=== PATIENT | male | born 1930 | race Caucasian/White ===

== ENCOUNTER 2016-11-20 05:53 | Emergency (ER) | payer MEDICARE, OTHER ==
[~2016-11-20] VITALS: Ht 177.8 cm; Wt 75.2 kg
[2016-11-20] MEDS ORDERED: ENAL20TA PO (06:32)
[2016-11-20] MEDS ORDERED: AMLO-280 PO (06:32)
[2016-11-20] MEDS ORDERED: METF500T4 PO (06:32)
[2016-11-20] MEDS ORDERED: GEMF600T3 PO (06:33)
[2016-11-20] MEDS ORDERED: FLUT9.9S NAS (06:33)
[2016-11-20] MEDS ORDERED: HYDR25TA6 PO (06:33)
[2016-11-20] MEDS ORDERED: SODIUM CHLORIDE FLUSH 10ML SYR IVF ONE (07:00)
[2016-11-20] MEDS ORDERED: SODIUM CHLORIDE 0.9% 1,000ML IVBOLUS ONE (07:00)
[2016-11-20 07:44] LABS: ASPARTATE AMINO TRANSFERASE 15 U/L (15-37); BLOOD UREA NITROGEN 33 mg/dL (7-18)
[2016-11-20 07:48] LABS: IS PT STATUS REG ER OR PRE ER? YES
[2016-11-20 08:07] VITALS: BP 134/76
== END 2016-11-20 09:25 | disposition home or self-care (01) ==
LOC: ED 06:19
DX: J20.9 Acute bronchitis, unspecified (principal); J01.90 Acute sinusitis, unspecified
CPT/HCPCS: 36415; 71010; 80053; 83605; 84484; 85025; 87040; 96360; 99285; J7030

== ENCOUNTER 2017-10-02 08:58 | Inpatient (IN) | payer MEDICARE ==
[~2017-10-02] VITALS: Ht 172.7 cm; Wt 78.9 kg
[~2017-10-02 08:58] MED LIST: AMLO-302 PO; APIX2.5T PO; ATOR10TA9 PO; DILT240C55 PO; ENAL20TA PO; FLUT9.9S NAS; GEMF600T3 PO; HYDR25TA6 PO; METF500T4 PO
[2017-10-02 09:21] LABS: BASOPHILS # (AUTO) 0.03 x10^3/uL (0-0.1); BASOPHILS % (AUTO) 0 % (0-1); EOSINOPHILS # (AUTO) 0.19 x10^3/uL (0-0.4); EOSINOPHILS % (AUTO) 3 % (1-7); LYMPHOCYTES % (AUTO) 21 % (22-44); MD NO; MEAN CORPUSCULAR HEMOGLOBIN 32.2 pg (27.5-34.5); MEAN CORPUSCULAR HGB CONC 33.4 g/dL (33.2-36.2); MEAN CORPUSCULAR VOLUME 96.4 fL (81-97); MEAN PLATELET VOLUME 8.8 fL (7.4-10.4); MONOCYTES # (AUTO) 0.57 x10^3/uL (0.2-0.8); MONOCYTES % (AUTO) 9 % (2-9); NEUTROPHILS # (AUTO) 4.45 x10^3/uL (1.8-6.8); NEUTROPHILS % (AUTO) 67 % (42-75); PLATELET COUNT 213 x10^3/uL (130-400); RED BLOOD COUNT 4.28 x10^6/uL (4.38-5.82); RED CELL DISTRIBUTION WIDTH 14.5 % (9.4-14.8)
[2017-10-02] MEDS ORDERED: SODIUM CHLORIDE FLUSH 10ML SYR IVF ONE (09:30)
[2017-10-02 09:32] LABS: INTERNATIONAL NORMALIZED RATIO 1.13 (0.93-1.1); PROTHROMBIN TIME 11.7 Seconds (9.6-11.5)
[2017-10-02 09:35] LABS: ALANINE AMINOTRANSFERASE 23 U/L (12-78); ALBUMIN 4.1 g/dL (3.4-5.0); ANION GAP 10 mmol/L (5-15); CALCIUM 9.3 mg/dL (8.5-10.1); CHLORIDE 104 mmol/L (98-107); CREATININE 1.43 mg/dL (0.7-1.3)
[2017-10-02 09:39] LABS: ALKALINE PHOSPHATASE 88 U/L (45-117); BILIRUBIN,TOTAL 0.6 mg/dL (0.2-1.0); TOTAL PROTEIN 7.7 g/dL (6.4-8.2); TROPONIN I < 0.015 ng/mL (0.000-0.045)
[2017-10-02] MEDS ORDERED: AMLO10TA2 PO (10:09)
[2017-10-02] MEDS ORDERED: GABA100C PO (10:10)
[2017-10-02] MEDS ORDERED: OMEP-110 PO (10:10)
[2017-10-02] MEDS ORDERED: SODIUM CHLORIDE FLUSH 10ML SYR IVF PRN (11:00)
[2017-10-02 11:12] LABS: MICROSCOPIC NOT IND
[2017-10-02] MEDS ORDERED: GLUCAGON 1 MG IM PRN (11:30)
[2017-10-02] MEDS ORDERED: DEXTROSE 50%, 50ML SYRINGE IVPush PRN (11:30)
[2017-10-02] MEDS ORDERED: ONDANSETRON 2MG/ML, 2ML IVPush PRN (11:30)
[2017-10-02] MEDS ORDERED: DEXTROSE 4 GM TAB.CHEW PO PRN (11:30)
[2017-10-02] MEDS ORDERED: hydrALAzine 20 MG/ML, 1ML IVPush PRN (11:30)
[2017-10-02 11:34] LABS: CULTURE INDICATED? NO
[2017-10-02] MEDS ORDERED: GADOBUTROL 7.5 MMOL/7.5 ML PFS ONE (11:53)
[2017-10-02 12:41] VITALS: BP_SYST 126; BP_SYST 140; BP_SYST 146; BP_DIAS 62; BP_DIAS 68; BP_DIAS 69
[2017-10-02] MEDS: SODIUM CHLORIDE 0.9% 1,000 ML IV SCH (13:02)
[2017-10-02] MEDS: ACETAMINOPHEN 325 MG TABLET PO PRN ×2 (15:20→22:16)
[2017-10-02] MEDS: INSULIN LISPRO 100 UNITS/ML, PEN SQ-INSULIN SCH ×2 (16:00→22:16)
[2017-10-02] MEDS ORDERED: INSULIN LISPRO 100 UNITS/ML, PEN SQ-INSULIN SCH (16:00)
[2017-10-02] MEDS: DEXAMETHASONE 4 MG/ML, 1ML IVPush SCH ×2 (16:32→22:16)
[2017-10-02 19:41] VITALS: BP 138/69
[2017-10-02] MEDS: ATORVASTATIN 10 MG TABLET PO SCH (22:15)
[2017-10-02] MEDS: GABAPENTIN 100 MG CAPSULE PO SCH (22:15)
[2017-10-02] MEDS: SODIUM CHLORIDE FLUSH 10ML SYR IVF SCH (22:15)
[2017-10-03] VITALS (9 sets, daily range): BP systolic 116–159; BP diastolic 61–84
[2017-10-03] MEDS: SODIUM CHLORIDE 0.9% 1,000 ML IV SCH ×2 (00:20→15:34)
[2017-10-03] MEDS: DEXAMETHASONE 4 MG/ML, 1ML IVPush SCH ×4 (04:14→21:33)
[2017-10-03 06:23] LABS: BASOPHILS # (AUTO) 0.01 x10^3/uL (0-0.1); BASOPHILS % (AUTO) 0 % (0-1); EOSINOPHILS % (AUTO) 0 % (1-7); MD NO
[2017-10-03 06:33] LABS: CHLORIDE 109 mmol/L (98-107)
[2017-10-03 06:36] LABS: LYMPHOCYTES # (AUTO) 0.66 x10^3/uL (1-3.4); LYMPHOCYTES % (AUTO) 10 % (22-44); MEAN CORPUSCULAR HEMOGLOBIN 33.1 pg (27.5-34.5); MEAN CORPUSCULAR HGB CONC 33.9 g/dL (33.2-36.2); MEAN CORPUSCULAR VOLUME 97.6 fL (81-97); MEAN PLATELET VOLUME 9.9 fL (7.4-10.4); MONOCYTES % (AUTO) 2 % (2-9); NEUTROPHILS # (AUTO) 6.03 x10^3/uL (1.8-6.8); NEUTROPHILS % (AUTO) 89 % (42-75); PLATELET COUNT 193 x10^3/uL (130-400); RED BLOOD COUNT 3.94 x10^6/uL (4.38-5.82); RED CELL DISTRIBUTION WIDTH 14.1 % (9.4-14.8)
[2017-10-03 06:42] LABS: ALANINE AMINOTRANSFERASE 19 U/L (12-78); ALBUMIN 3.6 g/dL (3.4-5.0); ALKALINE PHOSPHATASE 80 U/L (45-117); ANION GAP 8 mmol/L (5-15); BILIRUBIN,TOTAL 0.4 mg/dL (0.2-1.0); CREATININE 1.29 mg/dL (0.7-1.3)
[2017-10-03] MEDS: INSULIN LISPRO 100 UNITS/ML, PEN SQ-INSULIN SCH ×4 (08:07→21:34)
[2017-10-03] MEDS: OMEPRAZOLE 20 MG CAPSULE.DR PO SCH (08:09)
[2017-10-03] MEDS: ENALAPRIL 20MG TABLET PO SCH (08:09)
[2017-10-03] MEDS: APIXABAN 2.5 MG TABLET PO SCH ×2 (08:09→21:34)
[2017-10-03] MEDS: GABAPENTIN 100 MG CAPSULE PO SCH ×2 (08:09→21:33)
[2017-10-03] MEDS: GEMFIBROZIL 600 MG TABLET PO SCH (08:09)
[2017-10-03] MEDS: DILTIAZEM 240 MG CAP.ER.24H PO SCH (08:10)
[2017-10-03] MEDS: SODIUM CHLORIDE FLUSH 10ML SYR IVF SCH ×2 (08:10→21:34)
[2017-10-03] MEDS: FLUTICASONE NASAL SPRAY 16GM NAS SCH (10:24)
[2017-10-03] MEDS: ACETAMINOPHEN 325 MG TABLET PO PRN ×2 (13:55→20:53)
[2017-10-03] MEDS: ATORVASTATIN 10 MG TABLET PO SCH (21:34)
[2017-10-04 01:15] VITALS: BP 120/65
[2017-10-04] MEDS: DEXAMETHASONE 4 MG/ML, 1ML IVPush SCH (03:36)
[2017-10-04] MEDS: SODIUM CHLORIDE 0.9% 1,000 ML IV SCH (03:36)
[2017-10-04 05:48] LABS: ANION GAP 7 mmol/L (5-15); CALCIUM 8.5 mg/dL (8.5-10.1); CHLORIDE 109 mmol/L (98-107)
[2017-10-04 05:52] LABS: ALANINE AMINOTRANSFERASE 16 U/L (12-78); ALKALINE PHOSPHATASE 64 U/L (45-117); BASOPHILS % (AUTO) 0 % (0-1); BILIRUBIN,TOTAL 0.4 mg/dL (0.2-1.0); CREATININE 1.21 mg/dL (0.7-1.3); EOSINOPHILS % (AUTO) 0 % (1-7); LYMPHOCYTES % (AUTO) 7 % (22-44); MD NO; MEAN CORPUSCULAR HEMOGLOBIN 33.9 pg (27.5-34.5); MEAN CORPUSCULAR VOLUME 96.7 fL (81-97); MEAN PLATELET VOLUME 9.4 fL (7.4-10.4); MONOCYTES # (AUTO) 0.34 x10^3/uL (0.2-0.8); MONOCYTES % (AUTO) 3 % (2-9); NEUTROPHILS # (AUTO) 10.94 x10^3/uL (1.8-6.8); NEUTROPHILS % (AUTO) 91 % (42-75); PLATELET COUNT 180 x10^3/uL (130-400); RED BLOOD COUNT 3.41 x10^6/uL (4.38-5.82); RED CELL DISTRIBUTION WIDTH 13.8 % (9.4-14.8); TOTAL PROTEIN 5.9 g/dL (6.4-8.2)
[2017-10-04 06:59] VITALS: BP 119/58
[2017-10-04 07:00] VITALS: BP 132/63
[2017-10-04 07:01] VITALS: BP 154/65
[2017-10-04] MEDS: ENALAPRIL 20MG TABLET PO SCH (08:09)
[2017-10-04] MEDS: GEMFIBROZIL 600 MG TABLET PO SCH (08:09)
[2017-10-04] MEDS: FLUTICASONE NASAL SPRAY 16GM NAS SCH (08:09)
[2017-10-04] MEDS: OMEPRAZOLE 20 MG CAPSULE.DR PO SCH (08:09)
[2017-10-04] MEDS: INSULIN LISPRO 100 UNITS/ML, PEN SQ-INSULIN SCH ×2 (08:10→11:20)
[2017-10-04] MEDS: SODIUM CHLORIDE FLUSH 10ML SYR IVF SCH (08:10)
[2017-10-04] MEDS: APIXABAN 2.5 MG TABLET PO SCH (08:10)
[2017-10-04] MEDS: DILTIAZEM 240 MG CAP.ER.24H PO SCH (08:10)
[2017-10-04] MEDS: GABAPENTIN 100 MG CAPSULE PO SCH (08:10)
[2017-10-04] MEDS ORDERED: DEXAMETHASONE 4 MG/ML, 1ML IVPush SCH (10:00)
[2017-10-04] MEDS ORDERED: DEXA4TAB66 PO (11:50)
[2017-10-04 12:37] VITALS: BP 147/64
== END 2017-10-04 13:11 | disposition home or self-care (01) | DRG 55 ==
LOC: ED 09:27 → EDIP 10:38 → 4EST 12:04
PROVIDERS: ADMIT Hospitalist; ATTEND Hospitalist
DX: D32.9 Benign neoplasm of meninges, unspecified (principal); D68.9 Coagulation defect, unspecified; E11.22 Type 2 diabetes mellitus with diabetic chronic kidney disease; E11.40 Type 2 diabetes mellitus with diabetic neuropathy, unspecified; N18.3 Chronic kidney disease, stage 3 (moderate); I48.91 Unspecified atrial fibrillation; G45.3 Amaurosis fugax; D35.2 Benign neoplasm of pituitary gland; I95.1 Orthostatic hypotension; D64.9 Anemia, unspecified; E78.5 Hyperlipidemia, unspecified; G51.0 Bell's palsy; I12.9 Hypertensive chronic kidney disease with stage 1 through stage 4 chronic kidney disease, or unspecified chronic kidney disease; J32.9 Chronic sinusitis, unspecified; K21.9 Gastro-esophageal reflux disease without esophagitis; Z79.01 Long term (current) use of anticoagulants
CPT/HCPCS: 36415; 70450; 70553; 71045; 80047; 80053; 81003; 82962; 83001; 83003; 83519; 83735; 83880; 84146; 84305; 84443; 84484; 85025; 85610; 85730; 93005; 93880; 99285; A9585; J1100; J1815; J7030

== ENCOUNTER → 2017-10-13 | Outpatient (CLI) | payer MEDICARE ==
[~2017-10-13] MED LIST changes: +AMLO10TA2 PO; +DEXA4TAB66 PO; +GABA100C PO; +OMEP-110 PO
== END ==
LOC: CVU 06:44
PROVIDERS: ATTEND Internal Medicine Cardiovascular Disease
DX: M79.661 Pain in right lower leg (principal); M79.662 Pain in left lower leg; I10 Essential (primary) hypertension; I48.91 Unspecified atrial fibrillation
CPT/HCPCS: 93922

== ENCOUNTER 2017-12-22 06:15 | Emergency (ER) | payer MEDICARE ==
[~2017-12-22] VITALS: Ht 172.7 cm; Wt 79.5 kg
[~2017-12-22 06:15] MED LIST changes: -METF500T4 PO; +METF500T5 PO
[2017-12-22] MEDS ORDERED: DILT-8 PO (06:40)
[2017-12-22] MEDS ORDERED: APIX2.5T PO (06:40)
[2017-12-22 06:41] VITALS: BP 147/83
[2017-12-22 07:08] LABS: BASOPHILS # (AUTO) 0.01 x10^3/uL (0-0.1); BASOPHILS % (AUTO) 0 % (0-1); EOSINOPHILS % (AUTO) 0 % (1-7); LYMPHOCYTES # (AUTO) 0.93 x10^3/uL (1-3.4); LYMPHOCYTES % (AUTO) 10 % (22-44); MD NO; MEAN CORPUSCULAR HEMOGLOBIN 31.5 pg (27.5-34.5); MEAN CORPUSCULAR HGB CONC 33.2 g/dL (33.2-36.2); MEAN CORPUSCULAR VOLUME 94.8 fL (81-97); MEAN PLATELET VOLUME 9.9 fL (7.4-10.4); MONOCYTES # (AUTO) 0.48 x10^3/uL (0.2-0.8); MONOCYTES % (AUTO) 5 % (2-9); NEUTROPHILS % (AUTO) 85 % (42-75); PLATELET COUNT 186 x10^3/uL (130-400); RED BLOOD COUNT 3.78 x10^6/uL (4.38-5.82); RED CELL DISTRIBUTION WIDTH 14.6 % (9.4-14.8)
[2017-12-22 07:19] LABS: ALBUMIN 3.4 g/dL (3.4-5.0); ANION GAP 11 mmol/L (5-15); CALCIUM 8.2 mg/dL (8.5-10.1); CHLORIDE 108 mmol/L (98-107)
[2017-12-22 07:24] LABS: CREATININE 1.17 mg/dL (0.7-1.3); TROPONIN I < 0.015 ng/mL (0.000-0.045)
== END 2017-12-22 08:13 | disposition home or self-care (01) ==
LOC: ED 08:10
DX: H81.399 Other peripheral vertigo, unspecified ear (principal); I10 Essential (primary) hypertension; E11.9 Type 2 diabetes mellitus without complications; I48.91 Unspecified atrial fibrillation; Z86.73 Personal history of transient ischemic attack (TIA), and cerebral infarction without residual deficits
CPT/HCPCS: 36415; 70450; 71045; 80048; 82040; 83880; 84484; 85025; 93005; 99285

== ENCOUNTER 2018-03-07 06:03 | Inpatient (IN) | payer MEDICARE ==
[~2018-03-07] VITALS: Ht 172.7 cm; Wt 76.1 kg
[~2018-03-07 06:03] MED LIST changes: -AMLO10TA2 PO; +AMLO10TA6 PO; +ATOR40TA78 PO; +CARV12.543 PO; +DILT-8 PO; +DILT180C53 PO; +FURO20TA3 PO; -GEMF600T3 PO; +GEMF600T4 PO; +METF500T17 PO; -METF500T5 PO; +POTA10CA PO
[2018-03-07] MEDS ORDERED: DILTIAZEM 125 MG in DEXTROSE 5% 100 ML IV SCH (06:12)
[2018-03-07] MEDS ORDERED: FUROSEMIDE 40 MG/4 ML ONE (06:25)
[2018-03-07] MEDS ORDERED: DILTIAZEM 5 MG/ML, 5ML ONE (06:26)
[2018-03-07] MEDS ORDERED: DILTIAZEM 5 MG/ML, 5ML IV ONE (06:30)
[2018-03-07] MEDS ORDERED: NITROGLYCERIN SINGLE TAB 0.4 MG SL PRN (06:30)
[2018-03-07] MEDS ORDERED: FUROSEMIDE 40 MG/4 ML IVP ONE (06:30)
[2018-03-07 06:33] LABS: BASOPHILS # (AUTO) 0.03 x10^3/uL (0-0.1); BASOPHILS % (AUTO) 0 % (0-1); EOSINOPHILS # (AUTO) 0.18 x10^3/uL (0-0.4); EOSINOPHILS % (AUTO) 2 % (1-7); LYMPHOCYTES # (AUTO) 0.97 x10^3/uL (1-3.4); LYMPHOCYTES % (AUTO) 11 % (22-44); MD NO; MEAN CORPUSCULAR HEMOGLOBIN 31.7 pg (27.5-34.5); MEAN CORPUSCULAR HGB CONC 33.5 g/dL (33.2-36.2); MEAN CORPUSCULAR VOLUME 94.6 fL (81-97); MEAN PLATELET VOLUME 9.3 fL (7.4-10.4); MONOCYTES % (AUTO) 7 % (2-9); NEUTROPHILS # (AUTO) 7.02 x10^3/uL (1.8-6.8); NEUTROPHILS % (AUTO) 80 % (42-75); PLATELET COUNT 170 x10^3/uL (130-400); RED BLOOD COUNT 4.01 x10^6/uL (4.38-5.82); RED CELL DISTRIBUTION WIDTH 17.5 % (9.4-14.8)
[2018-03-07 06:46] LABS: ALBUMIN 3.7 g/dL (3.4-5.0); ANION GAP 8 mmol/L (5-15); CALCIUM 8.6 mg/dL (8.5-10.1); CHLORIDE 109 mmol/L (98-107)
[2018-03-07 06:52] LABS: ALANINE AMINOTRANSFERASE 21 U/L (12-78); ALKALINE PHOSPHATASE 115 U/L (45-117); BILIRUBIN,TOTAL 0.8 mg/dL (0.2-1.0); CREATININE 1.46 mg/dL (0.7-1.3); TROPONIN I < 0.015 ng/mL (0.000-0.045)
[2018-03-07] MEDS ORDERED: ASPI-496 PO (07:39)
[2018-03-07] MEDS ORDERED: DOCUSATE 100 MG CAPSULE PO PRN (08:30)
[2018-03-07] MEDS ORDERED: ACETAMINOPHEN 325 MG TABLET PO PRN (08:30)
[2018-03-07] MEDS ORDERED: TRAZODONE 50MG TABLET PO PRN (08:30)
[2018-03-07 08:45] VITALS: BP 123/70
[2018-03-07] MEDS: GABAPENTIN 100 MG CAPSULE PO SCH ×2 (10:13→21:01)
[2018-03-07] MEDS: APIXABAN 2.5 MG TABLET PO SCH ×2 (10:13→21:01)
[2018-03-07] MEDS: DILTIAZEM CD 180 MG CAP.ER.24H PO SCH ×2 (10:13→21:00)
[2018-03-07] MEDS: ASPIRIN 81 MG TABLET EC PO SCH (10:13)
[2018-03-07 12:13] LABS: TROPONIN I < 0.015 ng/mL (0.000-0.045)
[2018-03-07 13:15] VITALS: BP 125/76
[2018-03-07] MEDS: INSULIN LISPRO 100 UNITS/ML, PEN SQ-INSULIN SCH ×3 (13:55→21:00)
[2018-03-07] MEDS: FUROSEMIDE 40 MG/4 ML IV SCH (17:13)
[2018-03-07] MEDS: CARVEDILOL 12.5 MG TABLET PO SCH (17:13)
[2018-03-07] MEDS ORDERED: POTA10CA PO (18:33)
[2018-03-07] MEDS ORDERED: FURO20TA3 PO (18:33)
[2018-03-07 18:36] LABS: TROPONIN I 0.017 ng/mL (0.000-0.045)
[2018-03-07 19:25] VITALS: BP 127/74
[2018-03-07] MEDS: ATORVASTATIN 40 MG TABLET PO SCH (21:01)
[2018-03-08] MEDS: CARVEDILOL 12.5 MG TABLET PO SCH ×2 (05:04→16:48)
[2018-03-08 05:07] VITALS: BP 128/65
[2018-03-08 05:36] LABS: BASOPHILS # (AUTO) 0.03 x10^3/uL (0-0.1); BASOPHILS % (AUTO) 0 % (0-1); EOSINOPHILS % (AUTO) 3 % (1-7); LYMPHOCYTES # (AUTO) 1.38 x10^3/uL (1-3.4); LYMPHOCYTES % (AUTO) 19 % (22-44); MD NO; MEAN CORPUSCULAR HEMOGLOBIN 31.9 pg (27.5-34.5); MEAN CORPUSCULAR HGB CONC 33.8 g/dL (33.2-36.2); MEAN CORPUSCULAR VOLUME 94.3 fL (81-97); MEAN PLATELET VOLUME 9.7 fL (7.4-10.4); MONOCYTES # (AUTO) 0.64 x10^3/uL (0.2-0.8); MONOCYTES % (AUTO) 9 % (2-9); NEUTROPHILS # (AUTO) 4.86 x10^3/uL (1.8-6.8); NEUTROPHILS % (AUTO) 68 % (42-75); PLATELET COUNT 164 x10^3/uL (130-400); RED BLOOD COUNT 3.86 x10^6/uL (4.38-5.82); RED CELL DISTRIBUTION WIDTH 17.4 % (9.4-14.8)
[2018-03-08 05:48] LABS: ANION GAP 8 mmol/L (5-15); CALCIUM 8.6 mg/dL (8.5-10.1); CHLORIDE 108 mmol/L (98-107)
[2018-03-08 06:01] LABS: CREATININE 1.37 mg/dL (0.7-1.3)
[2018-03-08] MEDS ORDERED: DILTIAZEM 125 MG in DEXTROSE 5% 100 ML IV SCH (06:12)
[2018-03-08 06:48] VITALS: BP 123/72
[2018-03-08] MEDS: INSULIN LISPRO 100 UNITS/ML, PEN SQ-INSULIN SCH ×4 (08:25→21:18)
[2018-03-08] MEDS: GABAPENTIN 100 MG CAPSULE PO SCH ×2 (08:27→21:17)
[2018-03-08] MEDS: FUROSEMIDE 40 MG/4 ML IV SCH (08:27)
[2018-03-08] MEDS: APIXABAN 2.5 MG TABLET PO SCH ×2 (08:27→21:17)
[2018-03-08] MEDS: DILTIAZEM CD 180 MG CAP.ER.24H PO SCH ×2 (08:27→21:17)
[2018-03-08] MEDS: ASPIRIN 81 MG TABLET EC PO SCH (08:27)
[2018-03-08] MEDS: POTASSIUM CHLORIDE 20 MEQ TAB.ER.PRT PO SCH ×2 (08:27→16:48)
[2018-03-08 12:27] VITALS: BP 120/79
[2018-03-08] MEDS ORDERED: FUROSEMIDE 40 MG TABLET PO SCH (17:00)
[2018-03-08] MEDS ORDERED: LINA5TAB PO (17:06)
[2018-03-08 20:52] VITALS: BP 134/89
[2018-03-08] MEDS: ATORVASTATIN 40 MG TABLET PO SCH (21:17)
[2018-03-09 01:56] VITALS: BP 107/58
[2018-03-09 05:19] VITALS: BP 127/68
[2018-03-09] MEDS: CARVEDILOL 12.5 MG TABLET PO SCH (05:21)
[2018-03-09 06:13] LABS: ALBUMIN 3.2 g/dL (3.4-5.0); ANION GAP 10 mmol/L (5-15); CALCIUM 8.6 mg/dL (8.5-10.1); CHLORIDE 107 mmol/L (98-107); CREATININE 1.27 mg/dL (0.7-1.3)
[2018-03-09 07:31] VITALS: BP 119/65
[2018-03-09] MEDS: POTASSIUM CHLORIDE 20 MEQ TAB.ER.PRT PO SCH (08:28)
[2018-03-09] MEDS: DILTIAZEM CD 180 MG CAP.ER.24H PO SCH (08:28)
[2018-03-09] MEDS: GABAPENTIN 100 MG CAPSULE PO SCH (08:28)
[2018-03-09] MEDS: APIXABAN 2.5 MG TABLET PO SCH (08:28)
[2018-03-09] MEDS: ASPIRIN 81 MG TABLET EC PO SCH (08:28)
[2018-03-09] MEDS: INSULIN LISPRO 100 UNITS/ML, PEN SQ-INSULIN SCH (08:30)
[2018-03-09] MEDS ORDERED: FURO40TA6 PO (08:58)
[2018-03-09] MEDS ORDERED: POTA20TA6 PO (08:58)
[2018-03-09] MEDS ORDERED: FUROSEMIDE 40 MG TABLET PO SCH (09:00)
== END 2018-03-09 11:40 | disposition home or self-care (01) | DRG 291 ==
LOC: ED 06:58 → 5SO 07:29 → DCLOUNGE 03-09 11:12
PROVIDERS: ADMIT Internal Medicine; ATTEND Internal Medicine
DX: I13.0 Hypertensive heart and chronic kidney disease with heart failure and stage 1 through stage 4 chronic kidney disease, or unspecified chronic kidney disease (principal); J96.01 Acute respiratory failure with hypoxia; I50.33 Acute on chronic diastolic (congestive) heart failure; J81.1 Chronic pulmonary edema; N17.9 Acute kidney failure, unspecified; I50.9 Heart failure, unspecified; I48.91 Unspecified atrial fibrillation; E11.9 Type 2 diabetes mellitus without complications; Z88.0 Allergy status to penicillin; D32.9 Benign neoplasm of meninges, unspecified; E11.22 Type 2 diabetes mellitus with diabetic chronic kidney disease; E11.42 Type 2 diabetes mellitus with diabetic polyneuropathy; E78.5 Hyperlipidemia, unspecified; E87.6 Hypokalemia; I48.2 Chronic atrial fibrillation; J45.909 Unspecified asthma, uncomplicated; N18.3 Chronic kidney disease, stage 3 (moderate); Z86.73 Personal history of transient ischemic attack (TIA), and cerebral infarction without residual deficits; Z87.891 Personal history of nicotine dependence; G51.0 Bell's palsy; Z79.82 Long term (current) use of aspirin; Z79.899 Other long term (current) drug therapy
CPT/HCPCS: 36415; 71045; 80048; 80053; 82040; 82962; 83735; 83880; 84443; 84484; 85025; 93005; 96374; 96375; 99291; G0378; J1940; J1815

== ENCOUNTER 2018-04-06 20:04 | Inpatient (IN) | payer MEDICARE ==
[~2018-04-06] VITALS: Ht 172.7 cm; Wt 77.5 kg
[~2018-04-06 20:04] MED LIST changes: +ASPI-496 PO; +FURO40TA6 PO; +LINA5TAB PO; +POTA20TA6 PO
[2018-04-06] MEDS ORDERED: SODIUM CHLORIDE FLUSH 10ML SYR IVF ONE (20:30)
[2018-04-06 21:07] LABS: BASOPHILS # (AUTO) 0.06 x10^3/uL (0-0.1); BASOPHILS % (AUTO) 1 % (0-1); EOSINOPHILS # (AUTO) 0.27 x10^3/uL (0-0.4); EOSINOPHILS % (AUTO) 2 % (1-7); LYMPHOCYTES % (AUTO) 16 % (22-44); MD NO; MEAN CORPUSCULAR HEMOGLOBIN 32.3 pg (27.5-34.5); MEAN CORPUSCULAR VOLUME 95.1 fL (81-97); MEAN PLATELET VOLUME 10.4 fL (7.4-10.4); MONOCYTES # (AUTO) 0.74 x10^3/uL (0.2-0.8); MONOCYTES % (AUTO) 6 % (2-9); NEUTROPHILS # (AUTO) 8.61 x10^3/uL (1.8-6.8); NEUTROPHILS % (AUTO) 74 % (42-75); PLATELET COUNT 195 x10^3/uL (130-400); RED BLOOD COUNT 4.32 x10^6/uL (4.38-5.82); RED CELL DISTRIBUTION WIDTH 16.9 % (9.4-14.8)
[2018-04-06 21:14] LABS: INTERNATIONAL NORMALIZED RATIO 1.97 (0.93-1.1); PROTHROMBIN TIME 20.2 Seconds (9.6-11.5)
[2018-04-06 21:17] LABS: ALANINE AMINOTRANSFERASE 26 U/L (12-78); ALBUMIN 3.7 g/dL (3.4-5.0); ANION GAP 9 mmol/L (5-15); CALCIUM 8.4 mg/dL (8.5-10.1); CHLORIDE 109 mmol/L (98-107); CREATININE 1.31 mg/dL (0.7-1.3)
[2018-04-06 21:21] LABS: ALKALINE PHOSPHATASE 114 U/L (45-117); BILIRUBIN,TOTAL 0.7 mg/dL (0.2-1.0); TOTAL PROTEIN 7.2 g/dL (6.4-8.2); TROPONIN I < 0.015 ng/mL (0.000-0.045)
[2018-04-06] MEDS ORDERED: FUROSEMIDE 40 MG/4 ML ONE (22:30)
[2018-04-06] MEDS ORDERED: FUROSEMIDE 40 MG/4 ML IV ONE (22:30)
[2018-04-06 22:52] VITALS: BP 154/87
[2018-04-07] MEDS ORDERED: TEMAZEPAM 15 MG CAPSULE PO PRN (00:30)
[2018-04-07] MEDS ORDERED: ONDANSETRON ODT 4 MG PO PRN (00:30)
[2018-04-07] MEDS ORDERED: DOCUSATE 100 MG CAPSULE PO PRN (00:30)
[2018-04-07] MEDS ORDERED: hydrALAzine 20 MG/ML, 1ML IVPush PRN (00:30)
[2018-04-07] MEDS ORDERED: ACETAMINOPHEN 325 MG TABLET PO PRN (00:30)
[2018-04-07 05:25] VITALS: BP 104/63
[2018-04-07 06:56] VITALS: BP 114/69
[2018-04-07] MEDS: FUROSEMIDE 40 MG/4 ML IV SCH ×2 (08:00→17:20)
[2018-04-07] MEDS ORDERED: WARF2.5T73 PO (08:00)
[2018-04-07] MEDS ORDERED: DILT180C72 PO (08:00)
[2018-04-07] MEDS: FLUTICASONE NASAL SPRAY 16GM NAS SCH (09:30)
[2018-04-07] MEDS: GABAPENTIN 100 MG CAPSULE PO SCH ×2 (10:27→20:55)
[2018-04-07] MEDS: ASPIRIN 81 MG TABLET CHEW PO SCH (10:27)
[2018-04-07] MEDS: METOPROLOL TARTRATE 25 MG TABLET PO SCH ×2 (10:28→17:21)
[2018-04-07 11:12] LABS: BASOPHILS # (AUTO) 0.05 x10^3/uL (0-0.1); BASOPHILS % (AUTO) 1 % (0-1); EOSINOPHILS # (AUTO) 0.17 x10^3/uL (0-0.4); EOSINOPHILS % (AUTO) 2 % (1-7); LYMPHOCYTES # (AUTO) 1.08 x10^3/uL (1-3.4); LYMPHOCYTES % (AUTO) 13 % (22-44); MD NO; MEAN CORPUSCULAR HEMOGLOBIN 31.5 pg (27.5-34.5); MEAN CORPUSCULAR HGB CONC 33.5 g/dL (33.2-36.2); MEAN CORPUSCULAR VOLUME 93.9 fL (81-97); MEAN PLATELET VOLUME 10.3 fL (7.4-10.4); MONOCYTES % (AUTO) 7 % (2-9); NEUTROPHILS # (AUTO) 6.51 x10^3/uL (1.8-6.8); NEUTROPHILS % (AUTO) 78 % (42-75); PLATELET COUNT 153 x10^3/uL (130-400); RED BLOOD COUNT 4.02 x10^6/uL (4.38-5.82); RED CELL DISTRIBUTION WIDTH 16.9 % (9.4-14.8)
[2018-04-07 11:17] LABS: ALANINE AMINOTRANSFERASE 24 U/L (12-78); ALBUMIN 3.6 g/dL (3.4-5.0); ANION GAP 8 mmol/L (5-15); CALCIUM 8.9 mg/dL (8.5-10.1); CHLORIDE 107 mmol/L (98-107)
[2018-04-07 11:20] LABS: ALKALINE PHOSPHATASE 101 U/L (45-117); BILIRUBIN,TOTAL 0.9 mg/dL (0.2-1.0); TOTAL PROTEIN 6.7 g/dL (6.4-8.2)
[2018-04-07 13:05] VITALS: BP 121/70
[2018-04-07 15:27] LABS: INTERNATIONAL NORMALIZED RATIO 1.99 (0.93-1.1); PROTHROMBIN TIME 20.4 Seconds (9.6-11.5)
[2018-04-07] MEDS ORDERED: POTASSIUM CHLORIDE 40 MEQ in SODIUM CHLORIDE 0.9% 500 ML IV ONE (16:00)
[2018-04-07] MEDS ORDERED: WARFARIN 3 MG TABLET PO-COUM ONE (18:00)
[2018-04-07 18:46] VITALS: BP 126/72
[2018-04-07] MEDS ORDERED: ATORVASTATIN 40 MG TABLET PO SCH (21:00)
[2018-04-08 03:07] VITALS: BP 120/68
[2018-04-08 05:17] LABS: INTERNATIONAL NORMALIZED RATIO 1.98 (0.93-1.1); PROTHROMBIN TIME 20.3 Seconds (9.6-11.5)
[2018-04-08 05:22] LABS: ANION GAP 7 mmol/L (5-15); CALCIUM 9.2 mg/dL (8.5-10.1); CHLORIDE 107 mmol/L (98-107)
[2018-04-08 05:23] LABS: CREATININE 1.41 mg/dL (0.7-1.3)
[2018-04-08 05:42] VITALS: BP 132/72
[2018-04-08] MEDS: METOPROLOL TARTRATE 25 MG TABLET PO SCH (05:44)
[2018-04-08 07:46] VITALS: BP 131/77
[2018-04-08] MEDS: FLUTICASONE NASAL SPRAY 16GM NAS SCH (08:21)
[2018-04-08] MEDS: ASPIRIN 81 MG TABLET CHEW PO SCH (08:21)
[2018-04-08] MEDS: GABAPENTIN 100 MG CAPSULE PO SCH (08:21)
[2018-04-08] MEDS: FUROSEMIDE 40 MG/4 ML IV SCH (08:21)
[2018-04-08] MEDS ORDERED: METOPROLOL 1 MG/ML, 5ML ONE (09:44)
[2018-04-08 09:45] VITALS: BP 129/78
[2018-04-08] MEDS ORDERED: METOPROLOL 1 MG/ML, 5ML IVPush ONE (10:00)
[2018-04-08] MEDS ORDERED: FLUTICASONE NASAL SPRAY 16GM NAS SCH (11:00)
[2018-04-08] MEDS ORDERED: DILTIAZEM CD 180 MG CAP.ER.24H PO SCH (11:00)
[2018-04-08] MEDS ORDERED: METO25TA35 PO (11:05)
[2018-04-08] MEDS ORDERED: FURO40TA6 PO (11:05)
[2018-04-08] MEDS ORDERED: METOPROLOL TARTRATE 25 MG TABLET PO SCH (18:00)
[2018-04-08] MEDS ORDERED: WARFARIN 3 MG TABLET PO-COUM ONE (18:00)
[2018-04-09] MEDS ORDERED: FUROSEMIDE 20 MG/2 ML IV SCH (09:00)
== END 2018-04-08 12:34 | disposition home health service (06) | DRG 291 ==
LOC: ED 21:22 → EDIP 22:18 → 5SO 22:50 → DCLOUNGE 04-08 12:20
PROVIDERS: ADMIT Internal Medicine; ATTEND Internal Medicine
DX: I13.0 Hypertensive heart and chronic kidney disease with heart failure and stage 1 through stage 4 chronic kidney disease, or unspecified chronic kidney disease (principal); I50.23 Acute on chronic systolic (congestive) heart failure; D68.69 Other thrombophilia; E11.22 Type 2 diabetes mellitus with diabetic chronic kidney disease; E11.40 Type 2 diabetes mellitus with diabetic neuropathy, unspecified; E11.65 Type 2 diabetes mellitus with hyperglycemia; I48.2 Chronic atrial fibrillation; N18.3 Chronic kidney disease, stage 3 (moderate); R09.02 Hypoxemia; Z82.5 Family history of asthma and other chronic lower respiratory diseases; Z86.011 Personal history of benign neoplasm of the brain; Z86.73 Personal history of transient ischemic attack (TIA), and cerebral infarction without residual deficits; Z87.891 Personal history of nicotine dependence; Z91.14 Patient's other noncompliance with medication regimen
CPT/HCPCS: 36415; 71045; 80048; 80053; 82962; 83735; 83880; 84484; 85025; 85610; 85730; 93005; 96374; G0378; J1940; J3480; J7040

== ENCOUNTER 2018-05-29 10:23 | Emergency (ER) | payer MEDICARE ==
[~2018-05-29] VITALS: Ht 172.7 cm; Wt 79.0 kg
[~2018-05-29 10:23] MED LIST changes: +DILT180C72 PO; +METO25TA35 PO; +WARF2.5T32 PO
[2018-05-29] MEDS ORDERED: GLIM1TAB2 PO (10:50)
--- NOTE | 2018-05-29 10:56 | NUR ---
TASK RN - PT PRESENTS TO ED WITH FAMILY FOR CHEST PRESSURE AND RAPID HEART RATE. PT SEEN BY ROJELIO THIS AM BUT REFUSED EMS TRANSPORT TO ED. PT STATES SYMPTOMS PRESENT FOR "A FEW DAYS." C/O CHEST TIGHTNESS, 3/10, ACROSS CHEST, WITH ASSOCIATED SOB DURING ACTIVITY. PT TO ROOM, CP MONITORS IN [place], CALL LIGHT IN REACH. FAMILY AT BEDSIDE. REPORT TO GIOVANNA LEA RN.
[2018-05-29] MEDS ORDERED: METOPROLOL TARTRATE 50 MG TABLET PO ONE (11:00)
[2018-05-29] MEDS ORDERED: METOPROLOL TARTRATE 25 MG TABLET ONE (11:05)
--- NOTE | 2018-05-29 11:10 | NUR ---
PT AMBULATORY TO BATHROOM WIH STEADY GAIT.
[2018-05-29 11:14] LABS: BASOPHILS # (AUTO) 0.02 x10^3/uL (0-0.1); BASOPHILS % (AUTO) 0 % (0-1); EOSINOPHILS # (AUTO) 0.18 x10^3/uL (0-0.4); EOSINOPHILS % (AUTO) 2 % (1-7); LYMPHOCYTES % (AUTO) 15 % (22-44); MD NO; MEAN CORPUSCULAR HGB CONC 33.3 g/dL (33.2-36.2); MEAN CORPUSCULAR VOLUME 96.2 fL (81-97); MONOCYTES % (AUTO) 8 % (2-9); NEUTROPHILS # (AUTO) 5.46 x10^3/uL (1.8-6.8); NEUTROPHILS % (AUTO) 74 % (42-75); PLATELET COUNT 168 x10^3/uL (130-400); RED BLOOD COUNT 4.14 x10^6/uL (4.38-5.82); RED CELL DISTRIBUTION WIDTH 15.4 % (9.4-14.8)
[2018-05-29 11:25] LABS: ALBUMIN 3.8 g/dL (3.4-5.0); ANION GAP 6 mmol/L (5-15); CALCIUM 8.6 mg/dL (8.5-10.1); CHLORIDE 109 mmol/L (98-107); CREATININE 1.29 mg/dL (0.7-1.3)
[2018-05-29 11:29] LABS: TROPONIN I < 0.015 ng/mL (0.000-0.045)
--- NOTE | 2018-05-29 11:51 | NUR ---
ALL RESULTS BACK AT THIS TIME, CHART UP FOR RECHECK
[2018-05-29 12:26] VITALS: BP 133/83
== END 2018-05-29 12:45 | disposition home or self-care (01) ==
LOC: ED 12:39
DX: I48.2 Chronic atrial fibrillation (principal); R06.00 Dyspnea, unspecified; R53.1 Weakness; I11.0 Hypertensive heart disease with heart failure; E11.9 Type 2 diabetes mellitus without complications; I50.9 Heart failure, unspecified; Z87.891 Personal history of nicotine dependence; Z86.73 Personal history of transient ischemic attack (TIA), and cerebral infarction without residual deficits
CPT/HCPCS: 36415; 71045; 80048; 82040; 83880; 84484; 85025; 93005; 99284

== ENCOUNTER 2018-06-01 05:21 | Inpatient (IN) | payer MEDICARE ==
[~2018-06-01] VITALS: Ht 172.7 cm; Wt 77.2 kg
[~2018-06-01 05:21] MED LIST changes: +GLIM1TAB2 PO
--- NOTE | 2018-06-01 05:38 | NUR ---
MAYA ADAM AT BEDSIDE EVALUATING PT
--- NOTE | 2018-06-01 05:49 | NUR ---
87 Y/O MALE BIB SON FOR INCREASED SHORTNESS OF BREATH AND PAIN FOR THE PAST FEW DAYS. THE PT SON STATES HE "FINALLY MADE HIM COME IN TO BE EVALUATED THIS MORNING". PT REPORTS "RIB PAIN" BILATERALLY, PAIN INTENSE WITH ANY MOVEMENTS OR DEEP BREATHS. PT APPEARS TO BE IN EXTREME PAIN WHEN CHANGING POSITIONS IN BED. HR INCREASES SIGNIFICANTLY WITH MOVEMENT (FROM 90S TO 120S). PT ABLE TO SPEAK CLEAR SENTENCES WITHOUT DIFFICULTY. PMHX OF CHF AND AFIB. PT DENIES ANY RECENT TRAUMA/FALLS. NO LE EDEMA NOTED, NO DISTENSION TO ABD NOTED. MONITORING EQUIPMENT APPLIED. ALL VITALS STABLE. MONITOR SHOWING A FIB, NO ECTOPY NOTED. NO ST CHANGES PRESENT. PT DENIES ANY CHEST PAIN. RA SAT 93%. PT BECOMES SHORT OF BREATH WHILE MOVING IN BED. ALLERGIC TO PCN. SON AT BEDSIDE. AWAITING ORDERS, WILL CONTINUE TO MONITOR.
[2018-06-01 06:09] LABS: BASOPHILS # (AUTO) 0.07 x10^3/uL (0-0.1); BASOPHILS % (AUTO) 1 % (0-1); EOSINOPHILS # (AUTO) 0.23 x10^3/uL (0-0.4); EOSINOPHILS % (AUTO) 2 % (1-7); LYMPHOCYTES % (AUTO) 13 % (22-44); MD NO; MEAN CORPUSCULAR HEMOGLOBIN 32.1 pg (27.5-34.5); MEAN CORPUSCULAR HGB CONC 33.6 g/dL (33.2-36.2); MEAN CORPUSCULAR VOLUME 95.6 fL (81-97); MEAN PLATELET VOLUME 9.9 fL (7.4-10.4); MONOCYTES # (AUTO) 0.62 x10^3/uL (0.2-0.8); MONOCYTES % (AUTO) 7 % (2-9); NEUTROPHILS # (AUTO) 7.36 x10^3/uL (1.8-6.8); NEUTROPHILS % (AUTO) 78 % (42-75); PLATELET COUNT 167 x10^3/uL (130-400); RED BLOOD COUNT 4.13 x10^6/uL (4.38-5.82); RED CELL DISTRIBUTION WIDTH 15.3 % (9.4-14.8)
--- NOTE | 2018-06-01 06:19 | NUR ---
PT AMBULATORY TO RESTROOM WITH A STEADY GAIT. URINE SAMPLE OBTAINED. BACK TO BED WITHOUT DIFFICULTY.
[2018-06-01 06:23] LABS: ALANINE AMINOTRANSFERASE 19 U/L (12-78); ALBUMIN 3.7 g/dL (3.4-5.0); ANION GAP 8 mmol/L (5-15); CALCIUM 8.7 mg/dL (8.5-10.1); CHLORIDE 108 mmol/L (98-107); CREATININE 1.28 mg/dL (0.7-1.3); INTERNATIONAL NORMALIZED RATIO 1.41 (0.93-1.1); PROTHROMBIN TIME 14.8 Seconds (9.6-11.5)
[2018-06-01 06:28] LABS: ALKALINE PHOSPHATASE 115 U/L (45-117); BILIRUBIN,TOTAL 1.2 mg/dL (0.2-1.0); TOTAL PROTEIN 6.8 g/dL (6.4-8.2); TROPONIN I < 0.015 ng/mL (0.000-0.045)
[2018-06-01] MEDS ORDERED: SODIUM CHLORIDE FLUSH 10ML SYR IVF ONE (06:30)
[2018-06-01] MEDS ORDERED: MORPHINE SULFATE 4 MG/ML, 1ML IVPush PRN (06:30)
[2018-06-01] MEDS ORDERED: ONDANSETRON 2MG/ML, 2ML ONE (06:36)
[2018-06-01] MEDS ORDERED: MORPHINE SULFATE 4 MG/ML, 1ML ONE (06:36)
--- NOTE | 2018-06-01 06:39 | NUR ---
IV ESTABLISHED. PT MEDICATED PER EMAR. 5 RIGHTS ADDRESSED.
[2018-06-01] MEDS ORDERED: ONDANSETRON ODT 4 MG PO ONE (07:00)
--- NOTE | 2018-06-01 07:00 | NUR ---
RECIVED REPORT. FAMILY IS AT BEDISDE. NAD NOTED. VSS. CALL LIGHT IS WITHIN REACH.
--- NOTE | 2018-06-01 07:04 | NUR ---
REPORT TO DUANE SILVA.
--- NOTE | 2018-06-01 07:30 | NUR ---
PT IS BACK FROM CT. FAMILY MEMBER IS AT [facility]. UPDATED PT AND FAMILY ON POC. PT IS ON ALL MONITORS WITH AUDIBLE ALARMS.
--- NOTE | 2018-06-01 07:55 | NUR ---
PT TO CT AT THIS TIME.
--- NOTE | 2018-06-01 08:49 | NUR ---
WAITING FOR ROOM ASSIGNNMNET PT IS TO BE ADMITTED. PT IS RESTING ON GURNEY WITH EYES CLOSED, RESPIRATIONS ARE EVEN AND UNLABORED. FAMILY MEMBER IS T BEDSIDE.
--- NOTE | 2018-06-01 09:27 | NUR ---
CALLED REPORT TO MAYE ZEPEDA. OK FOR PT TO GO TO THE FLOOR NOW.
[2018-06-01] MEDS ORDERED: ACETAMINOPHEN 325 MG TABLET PO PRN (10:00)
[2018-06-01] MEDS ORDERED: HEPARIN 5,000 UNITS/ML, 1ML SQ SCH (10:00)
[2018-06-01] MEDS ORDERED: ONDANSETRON ODT 4 MG PO PRN (10:00)
[2018-06-01 10:29] VITALS: BP 121/75
[2018-06-01] MEDS ORDERED: FUROSEMIDE 40 MG/4 ML IV ONE ×2 (10:30→17:00)
[2018-06-01 10:45] LABS: TROPONIN I < 0.015 ng/mL (0.000-0.045)
[2018-06-01] MEDS: INSULIN LISPRO 100 UNITS/ML, PEN SQ-INSULIN SCH ×2 (10:58→16:00)
[2018-06-01] MEDS ORDERED: REGADENOSON 0.4 MG/5 ML SYRINGE ONE (12:02)
[2018-06-01 13:45] LABS: TROPONIN I < 0.015 ng/mL (0.000-0.045)
[2018-06-01 14:52] VITALS: BP 115/68
[2018-06-01] MEDS ORDERED: POTASSIUM CHLORIDE 20 MEQ TAB.ER.PRT PO SCH (17:00)
[2018-06-01] MEDS ORDERED: WARF2.5T PO (17:05)
[2018-06-01] MEDS ORDERED: METOPROLOL TARTRATE 25 MG TABLET PO SCH (18:00)
[2018-06-01] MEDS ORDERED: WARFARIN 5 MG TABLET PO-COUM ONE (18:00)
[2018-06-02] MEDS ORDERED: ASPIRIN 81 MG TABLET EC PO SCH (09:00)
[2018-06-02] MEDS ORDERED: FUROSEMIDE 40 MG TABLET PO SCH (09:00)
[2018-06-02] MEDS ORDERED: DILTIAZEM CD 180 MG CAP.ER.24H PO SCH (09:00)
[2018-06-02] MEDS ORDERED: FLUTICASONE NASAL SPRAY 16GM NAS SCH (09:00)
== END 2018-06-01 17:26 | disposition home or self-care (01) | DRG 291 ==
LOC: ED 06:09 → EDIP 08:24 → 5SO 08:43 → DCLOUNGE 17:01
PROVIDERS: ADMIT Hospitalist; ATTEND Hospitalist
DX: I13.0 Hypertensive heart and chronic kidney disease with heart failure and stage 1 through stage 4 chronic kidney disease, or unspecified chronic kidney disease (principal); I50.33 Acute on chronic diastolic (congestive) heart failure; D68.69 Other thrombophilia; J98.11 Atelectasis; E11.22 Type 2 diabetes mellitus with diabetic chronic kidney disease; E11.42 Type 2 diabetes mellitus with diabetic polyneuropathy; D32.9 Benign neoplasm of meninges, unspecified; I25.10 Atherosclerotic heart disease of native coronary artery without angina pectoris; N18.3 Chronic kidney disease, stage 3 (moderate); I48.2 Chronic atrial fibrillation; Z79.01 Long term (current) use of anticoagulants; Z79.84 Long term (current) use of oral hypoglycemic drugs; Z86.011 Personal history of benign neoplasm of the brain; Z86.73 Personal history of transient ischemic attack (TIA), and cerebral infarction without residual deficits; Z91.14 Patient's other noncompliance with medication regimen
CPT/HCPCS: 36415; 71045; 71250; 78452; 80053; 82962; 83880; 84484; 85025; 85610; 93005; 93017; 96374; 99285; J1644; J1940; J2785; Q0162; A9502; C9898

== ENCOUNTER 2018-06-07 17:58 | Inpatient (IN) | payer MEDICARE ==
[~2018-06-07] VITALS: Ht 172.7 cm; Wt 83.7 kg
[~2018-06-07 17:58] MED LIST changes: +WARF2.5T PO
--- NOTE | 2018-06-07 18:29 | NUR ---
PT PRESENTING TO ER FOR CP AND SOB SINCE YESTERDAY. HX OF CHF, ON LASIX, TAKING MEDS PRESCRIBED. NOTED BLE EDEMA NON PITTING. CONNECTED TO ALL MONITORING, VSS, PT BREATHING RAPIDLY. A&OX4. FAMILY AT BEDSIDE. IV PLACED, LABS COLLECTED. AWAITING RAD, RESULTS AND FURTHER ORDERS AT THIS TIME. CALL LIGHT WITHIN REACH
[2018-06-07] MEDS ORDERED: NITROGLYCERIN SINGLE TAB 0.4 MG SL PRN (18:30)
[2018-06-07] MEDS ORDERED: SODIUM CHLORIDE FLUSH 10ML SYR IVF ONE (18:30)
[2018-06-07 18:40] LABS: BASOPHILS # (AUTO) 0.04 x10^3/uL (0-0.1); BASOPHILS % (AUTO) 1 % (0-1); EOSINOPHILS # (AUTO) 0.23 x10^3/uL (0-0.4); EOSINOPHILS % (AUTO) 3 % (1-7); LYMPHOCYTES # (AUTO) 1.38 x10^3/uL (1-3.4); LYMPHOCYTES % (AUTO) 20 % (22-44); MD NO; MEAN CORPUSCULAR HEMOGLOBIN 32.9 pg (27.5-34.5); MEAN CORPUSCULAR VOLUME 96.6 fL (81-97); MEAN PLATELET VOLUME 10.4 fL (7.4-10.4); MONOCYTES # (AUTO) 0.62 x10^3/uL (0.2-0.8); MONOCYTES % (AUTO) 9 % (2-9); NEUTROPHILS # (AUTO) 4.65 x10^3/uL (1.8-6.8); NEUTROPHILS % (AUTO) 67 % (42-75); PLATELET COUNT 187 x10^3/uL (130-400); RED BLOOD COUNT 4.24 x10^6/uL (4.38-5.82); RED CELL DISTRIBUTION WIDTH 15.9 % (9.4-14.8)
--- NOTE | 2018-06-07 18:42 | NUR ---
MD TO BEDSIDE FOR ASSESSMENT. AWAITING ORDERS AT THIS TIME.
--- NOTE | 2018-06-07 18:42 | NUR ---
MD TO BEDSIDE FOR ASSESSMENT
[2018-06-07] MEDS ORDERED: NITROGLYCERIN OINT 2%, 1GM TP ONE ×2 (18:46→19:00)
[2018-06-07 18:48] LABS: ALBUMIN 4.1 g/dL (3.4-5.0); ANION GAP 4 mmol/L (5-15); CHLORIDE 108 mmol/L (98-107); INTERNATIONAL NORMALIZED RATIO 1.53 (0.93-1.1)
[2018-06-07 18:55] LABS: CREATININE 1.46 mg/dL (0.7-1.3); TROPONIN I < 0.015 ng/mL (0.000-0.045)
--- NOTE | 2018-06-07 19:27 | NUR ---
Duyen erickson in ED - 06/07/18 at 1927 by PORFIRIO ADDITIONAL ORDERS RECEIVED. PT CURRENTLY IN CTA.
--- NOTE | 2018-06-07 19:28 | NUR ---
ADDITIONAL ORDERS RECEIVED. PT CURRENTLY IN CTA.
[2018-06-07] MEDS ORDERED: OMNIPAQUE 350 MG/ML, 100ML BOTTLE ONE (19:32)
--- NOTE | 2018-06-07 20:02 | NUR ---
ALL RESULTS BACK AT THIS TIME. CHART UP FOR RECHECK.
[2018-06-07] MEDS ORDERED: OMEP20TA62 PO (20:48)
[2018-06-07] MEDS ORDERED: ATOR40TA PO (20:48)
[2018-06-07] MEDS ORDERED: GABA300C10 PO (20:48)
--- NOTE | 2018-06-07 20:50 | NUR ---
AWAITING ADMIT ORDERS AT THIS TIME. VSS. CALL LIGHT WITHIN REACH.
[2018-06-07] MEDS ORDERED: ONDANSETRON 2MG/ML, 2ML IVPush PRN (21:30)
[2018-06-07] MEDS ORDERED: hydrALAzine 20 MG/ML, 1ML IVPush PRN (21:30)
[2018-06-07] MEDS: ATORVASTATIN 40 MG TABLET PO SCH (21:30)
[2018-06-07] MEDS ORDERED: morphine SULFATE 10 MG/ML, 1ML IVPush PRN (21:30)
[2018-06-07] MEDS ORDERED: NITROGLYCERIN 0.4 MG BOTTLE (25 TABS) SL PRN (21:30)
[2018-06-07 22:00] LABS: TROPONIN I < 0.015 ng/mL (0.000-0.045)
--- NOTE | 2018-06-07 22:14 | NUR ---
report given to shadi rose. pt ready for transport.
[2018-06-07 22:45] VITALS: BP 135/75
[2018-06-07] MEDS: HEPARIN 5,000 UNITS/ML, 1ML SQ SCH (23:31)
[2018-06-08] MEDS: ACETAMINOPHEN 325 MG TABLET PO PRN ×3 (02:57→18:23)
[2018-06-08 04:03] LABS: BASOPHILS # (AUTO) 0.03 x10^3/uL (0-0.1); BASOPHILS % (AUTO) 0 % (0-1); EOSINOPHILS # (AUTO) 0.23 x10^3/uL (0-0.4); EOSINOPHILS % (AUTO) 3 % (1-7); LYMPHOCYTES # (AUTO) 1.35 x10^3/uL (1-3.4); LYMPHOCYTES % (AUTO) 20 % (22-44); MD NO; MEAN CORPUSCULAR HEMOGLOBIN 32.8 pg (27.5-34.5); MEAN CORPUSCULAR HGB CONC 33.9 g/dL (33.2-36.2); MEAN CORPUSCULAR VOLUME 96.6 fL (81-97); MEAN PLATELET VOLUME 9.8 fL (7.4-10.4); MONOCYTES # (AUTO) 0.53 x10^3/uL (0.2-0.8); MONOCYTES % (AUTO) 8 % (2-9); NEUTROPHILS # (AUTO) 4.77 x10^3/uL (1.8-6.8); NEUTROPHILS % (AUTO) 69 % (42-75); PLATELET COUNT 155 x10^3/uL (130-400); RED BLOOD COUNT 3.72 x10^6/uL (4.38-5.82); RED CELL DISTRIBUTION WIDTH 15.5 % (9.4-14.8)
[2018-06-08 04:09] LABS: ANION GAP 7 mmol/L (5-15); CALCIUM 8.7 mg/dL (8.5-10.1); CHLORIDE 110 mmol/L (98-107); CREATININE 1.27 mg/dL (0.7-1.3)
[2018-06-08 04:13] LABS: TROPONIN I < 0.015 ng/mL (0.000-0.045)
[2018-06-08] MEDS: METOPROLOL TARTRATE 25 MG TABLET PO SCH ×2 (06:29→18:12)
[2018-06-08] MEDS: HEPARIN 5,000 UNITS/ML, 1ML SQ SCH ×3 (06:30→22:24)
[2018-06-08] MEDS ORDERED: DEXTROSE 50%, 50ML SYRINGE IVPush PRN (08:00)
[2018-06-08] MEDS ORDERED: GLUCAGON 1 MG IM PRN (08:00)
[2018-06-08] MEDS ORDERED: DEXTROSE 4 GM TAB.CHEW PO PRN (08:00)
[2018-06-08 08:59] VITALS: BP 108/71
[2018-06-08] MEDS: SODIUM CHLORIDE FLUSH 10ML SYR IVF SCH ×4 (09:00→20:33)
[2018-06-08] MEDS ORDERED: FUROSEMIDE 40 MG TABLET PO SCH (09:00)
[2018-06-08] MEDS ORDERED: GLIMEPIRIDE 1 MG TABLET PO SCH (09:00)
[2018-06-08] MEDS: OMEPRAZOLE 20 MG CAPSULE.DR PO SCH (09:16)
[2018-06-08] MEDS: GABAPENTIN 100 MG CAPSULE PO SCH (09:16)
[2018-06-08] MEDS: DILTIAZEM CD 180 MG CAP.ER.24H PO SCH (09:17)
[2018-06-08] MEDS: FUROSEMIDE 40 MG/4 ML IV SCH (09:20)
[2018-06-08] MEDS: POTASSIUM CHLORIDE 20 MEQ TAB.ER.PRT PO SCH ×2 (09:20→18:12)
[2018-06-08] MEDS: ASPIRIN 81 MG TABLET CHEW PO SCH (09:23)
[2018-06-08] MEDS: INSULIN LISPRO 100 UNITS/ML, PEN SQ-INSULIN SCH ×3 (12:55→20:35)
[2018-06-08] MEDS: FLUTICASONE NASAL SPRAY 16GM NAS SCH (12:55)
[2018-06-08 14:55] VITALS: BP 109/70
[2018-06-08] MEDS ORDERED: WARFARIN 2.5 MG TABLET PO-COUM SCH (18:00)
[2018-06-08 18:11] VITALS: BP 138/80
[2018-06-08 18:32] LABS: INTERNATIONAL NORMALIZED RATIO 1.48 (0.93-1.1); PROTHROMBIN TIME 15.5 Seconds (9.6-11.5)
[2018-06-08 20:04] VITALS: BP 123/77
[2018-06-08] MEDS: ATORVASTATIN 40 MG TABLET PO SCH (20:33)
[2018-06-09 03:03] VITALS: BP 136/83
[2018-06-09 05:25] VITALS: BP 115/90
[2018-06-09] MEDS: HEPARIN 5,000 UNITS/ML, 1ML SQ SCH ×3 (05:26→22:53)
[2018-06-09] MEDS: METOPROLOL TARTRATE 25 MG TABLET PO SCH ×2 (05:26→18:04)
[2018-06-09 05:34] LABS: BASOPHILS # (AUTO) 0.02 x10^3/uL (0-0.1); BASOPHILS % (AUTO) 0 % (0-1); EOSINOPHILS # (AUTO) 0.16 x10^3/uL (0-0.4); EOSINOPHILS % (AUTO) 2 % (1-7); LYMPHOCYTES # (AUTO) 1.38 x10^3/uL (1-3.4); LYMPHOCYTES % (AUTO) 20 % (22-44); MD NO; MEAN CORPUSCULAR HEMOGLOBIN 33.1 pg (27.5-34.5); MEAN CORPUSCULAR HGB CONC 34.5 g/dL (33.2-36.2); MEAN PLATELET VOLUME 10.6 fL (7.4-10.4); MONOCYTES # (AUTO) 0.58 x10^3/uL (0.2-0.8); MONOCYTES % (AUTO) 8 % (2-9); NEUTROPHILS # (AUTO) 4.94 x10^3/uL (1.8-6.8); NEUTROPHILS % (AUTO) 70 % (42-75); PLATELET COUNT 164 x10^3/uL (130-400); RED CELL DISTRIBUTION WIDTH 15.7 % (9.4-14.8)
[2018-06-09 05:36] LABS: ALBUMIN 3.6 g/dL (3.4-5.0); ANION GAP 8 mmol/L (5-15); CHLORIDE 110 mmol/L (98-107); CREATININE 1.56 mg/dL (0.7-1.3)
[2018-06-09 06:48] VITALS: BP 124/80
[2018-06-09 07:38] LABS: INTERNATIONAL NORMALIZED RATIO 1.42 (0.93-1.1); PROTHROMBIN TIME 14.9 Seconds (9.6-11.5)
[2018-06-09] MEDS: SODIUM CHLORIDE FLUSH 10ML SYR IVF SCH ×4 (09:00→20:27)
[2018-06-09] MEDS ORDERED: METOPROLOL TARTRATE 25 MG TABLET PO SCH ×2 (09:00→18:00)
[2018-06-09] MEDS: INSULIN LISPRO 100 UNITS/ML, PEN SQ-INSULIN SCH ×4 (09:25→20:27)
[2018-06-09] MEDS: FLUTICASONE NASAL SPRAY 16GM NAS SCH (09:25)
[2018-06-09] MEDS: FUROSEMIDE 40 MG/4 ML IV SCH (09:27)
[2018-06-09] MEDS: DILTIAZEM CD 180 MG CAP.ER.24H PO SCH (09:28)
[2018-06-09] MEDS: ACETAMINOPHEN 325 MG TABLET PO PRN (09:28)
[2018-06-09] MEDS: GUAIFENESIN 200 MG TABLET PO PRN (09:28)
[2018-06-09] MEDS: ASPIRIN 81 MG TABLET CHEW PO SCH (09:29)
[2018-06-09] MEDS: OMEPRAZOLE 20 MG CAPSULE.DR PO SCH (09:29)
[2018-06-09] MEDS: GABAPENTIN 100 MG CAPSULE PO SCH (09:29)
[2018-06-09] MEDS: POTASSIUM CHLORIDE 20 MEQ TAB.ER.PRT PO SCH ×2 (09:29→17:58)
[2018-06-09 15:27] VITALS: BP 115/69
[2018-06-09] MEDS ORDERED: WARFARIN 5 MG TABLET PO-COUM ONE (18:00)
[2018-06-09 18:04] VITALS: BP 146/81
[2018-06-09] MEDS: ATORVASTATIN 40 MG TABLET PO SCH (20:27)
[2018-06-10 01:49] VITALS: BP 122/79
[2018-06-10 05:15] VITALS: BP 131/65
[2018-06-10] MEDS: METOPROLOL TARTRATE 25 MG TABLET PO SCH ×2 (05:16→17:49)
[2018-06-10] MEDS: HEPARIN 5,000 UNITS/ML, 1ML SQ SCH ×3 (05:16→22:46)
[2018-06-10 05:39] LABS: CHLORIDE 108 mmol/L (98-107)
[2018-06-10 06:03] LABS: ALBUMIN 3.7 g/dL (3.4-5.0); ANION GAP 9 mmol/L (5-15); CALCIUM 8.9 mg/dL (8.5-10.1); CREATININE 1.34 mg/dL (0.7-1.3)
[2018-06-10] MEDS ORDERED: DILTIAZEM 60 MG TABLET ONE (06:31)
[2018-06-10] MEDS: DILTIAZEM 60 MG TABLET PO SCH ×4 (06:33→20:34)
[2018-06-10 07:07] VITALS: BP 121/78
[2018-06-10] MEDS: INSULIN LISPRO 100 UNITS/ML, PEN SQ-INSULIN SCH ×4 (08:05→20:34)
[2018-06-10 08:26] LABS: INTERNATIONAL NORMALIZED RATIO 1.34 (0.93-1.1)
[2018-06-10] MEDS: ASPIRIN 81 MG TABLET CHEW PO SCH (08:58)
[2018-06-10] MEDS: FUROSEMIDE 40 MG/4 ML IV SCH (08:59)
[2018-06-10] MEDS: POTASSIUM CHLORIDE 20 MEQ TAB.ER.PRT PO SCH ×2 (08:59→17:49)
[2018-06-10] MEDS: SODIUM CHLORIDE FLUSH 10ML SYR IVF SCH ×4 (08:59→20:35)
[2018-06-10] MEDS: GABAPENTIN 100 MG CAPSULE PO SCH (09:00)
[2018-06-10] MEDS: OMEPRAZOLE 20 MG CAPSULE.DR PO SCH (09:00)
[2018-06-10] MEDS: FLUTICASONE NASAL SPRAY 16GM NAS SCH (09:00)
[2018-06-10] MEDS: ACETAMINOPHEN 325 MG TABLET PO PRN (11:10)
[2018-06-10 16:21] VITALS: BP 130/72
[2018-06-10] MEDS ORDERED: WARFARIN 5 MG TABLET PO-COUM SCH (18:00)
[2018-06-10 19:09] VITALS: BP 108/72
[2018-06-10 20:32] VITALS: BP 120/69
[2018-06-10] MEDS: ATORVASTATIN 40 MG TABLET PO SCH (20:34)
[2018-06-10] MEDS: GUAIFENESIN 200 MG TABLET PO PRN (20:37)
[2018-06-11 01:08] VITALS: BP 117/68
[2018-06-11 05:53] VITALS: BP 134/80
[2018-06-11] MEDS: METOPROLOL TARTRATE 25 MG TABLET PO SCH (05:54)
[2018-06-11] MEDS: DILTIAZEM 60 MG TABLET PO SCH ×2 (05:54→11:00)
[2018-06-11] MEDS: HEPARIN 5,000 UNITS/ML, 1ML SQ SCH (05:55)
[2018-06-11 06:09] LABS: INTERNATIONAL NORMALIZED RATIO 1.41 (0.93-1.1); PROTHROMBIN TIME 14.7 Seconds (9.6-11.5)
[2018-06-11 06:24] VITALS: BP 118/73
[2018-06-11] MEDS: INSULIN LISPRO 100 UNITS/ML, PEN SQ-INSULIN SCH (07:00)
[2018-06-11] MEDS: OMEPRAZOLE 20 MG CAPSULE.DR PO SCH (08:06)
[2018-06-11] MEDS: POTASSIUM CHLORIDE 20 MEQ TAB.ER.PRT PO SCH (08:06)
[2018-06-11] MEDS: GABAPENTIN 100 MG CAPSULE PO SCH (08:06)
[2018-06-11] MEDS: SODIUM CHLORIDE FLUSH 10ML SYR IVF SCH ×2 (08:07)
[2018-06-11] MEDS: FUROSEMIDE 40 MG/4 ML IV SCH (08:07)
[2018-06-11] MEDS: FLUTICASONE NASAL SPRAY 16GM NAS SCH (08:07)
[2018-06-11] MEDS: ASPIRIN 81 MG TABLET CHEW PO SCH (08:07)
[2018-06-11] MEDS ORDERED: WARF7.5T PO-COUM (09:23)
[2018-06-11] MEDS ORDERED: METO25TA35 PO (09:23)
[2018-06-11] MEDS ORDERED: DILT60TA27 PO (09:23)
[2018-06-11] MEDS ORDERED: WARFARIN 7.5 MG TABLET PO-COUM SCH (18:00)
== END 2018-06-11 11:28 | disposition home or self-care (01) | DRG 291 ==
LOC: ED 19:07 → EDIP 21:02 → 5SO 23:02
PROVIDERS: ADMIT Hospitalist; ATTEND Hospitalist
DX: I13.0 Hypertensive heart and chronic kidney disease with heart failure and stage 1 through stage 4 chronic kidney disease, or unspecified chronic kidney disease (principal); I50.43 Acute on chronic combined systolic (congestive) and diastolic (congestive) heart failure; N17.9 Acute kidney failure, unspecified; J98.11 Atelectasis; D68.69 Other thrombophilia; E11.22 Type 2 diabetes mellitus with diabetic chronic kidney disease; E11.65 Type 2 diabetes mellitus with hyperglycemia; H91.90 Unspecified hearing loss, unspecified ear; I48.2 Chronic atrial fibrillation; N18.9 Chronic kidney disease, unspecified; Z86.011 Personal history of benign neoplasm of the brain; Z86.73 Personal history of transient ischemic attack (TIA), and cerebral infarction without residual deficits
CPT/HCPCS: 36415; 71045; 71275; 80048; 82040; 82962; 83735; 83880; 84100; 84484; 85025; 85610; 93005; 93306; 99285; G0378; J1644; J1940; Q9967; J1815

== ENCOUNTER 2018-07-21 18:52 | Emergency (ER) | payer MEDICARE ==
[~2018-07-21] VITALS: Ht 172.7 cm; Wt 77.4 kg
[~2018-07-21 18:52] MED LIST changes: -AMLO10TA6 PO; +AMLO10TA8 PO; +ATOR40TA PO; +DILT60TA27 PO; +GABA300C10 PO; -GEMF600T4 PO; +GEMF600T8 PO; +OMEP20TA62 PO; +WARF7.5T PO-COUM
[2018-07-21 19:22] LABS: BASOPHILS # (AUTO) 0.04 x10^3/uL (0-0.1); BASOPHILS % (AUTO) 1 % (0-1); EOSINOPHILS # (AUTO) 0.25 x10^3/uL (0-0.4); EOSINOPHILS % (AUTO) 3 % (1-7); LYMPHOCYTES # (AUTO) 1.74 x10^3/uL (1-3.4); LYMPHOCYTES % (AUTO) 22 % (22-44); MD NO; MEAN CORPUSCULAR HEMOGLOBIN 32.7 pg (27.5-34.5); MEAN CORPUSCULAR HGB CONC 33.8 g/dL (33.2-36.2); MEAN CORPUSCULAR VOLUME 96.8 fL (81-97); MEAN PLATELET VOLUME 9.7 fL (7.4-10.4); MONOCYTES # (AUTO) 0.63 x10^3/uL (0.2-0.8); MONOCYTES % (AUTO) 8 % (2-9); NEUTROPHILS # (AUTO) 5.36 x10^3/uL (1.8-6.8); NEUTROPHILS % (AUTO) 67 % (42-75); PLATELET COUNT 204 x10^3/uL (130-400); RED BLOOD COUNT 4.69 x10^6/uL (4.38-5.82)
[2018-07-21 19:27] LABS: INTERNATIONAL NORMALIZED RATIO 2.54 (0.93-1.1)
[2018-07-21 19:29] LABS: ALBUMIN 4.2 g/dL (3.4-5.0); ANION GAP 7 mmol/L (5-15); CALCIUM 8.8 mg/dL (8.5-10.1); CHLORIDE 103 mmol/L (98-107); CREATININE 1.65 mg/dL (0.7-1.3)
[2018-07-21 19:32] LABS: TROPONIN I < 0.015 ng/mL (0.000-0.045)
[2018-07-21 19:45] VITALS: BP 139/93
== END 2018-07-21 20:20 | disposition home or self-care (01) ==
LOC: ED 20:15
DX: I11.0 Hypertensive heart disease with heart failure (principal); I50.9 Heart failure, unspecified; E11.9 Type 2 diabetes mellitus without complications; I48.91 Unspecified atrial fibrillation; Z86.73 Personal history of transient ischemic attack (TIA), and cerebral infarction without residual deficits
CPT/HCPCS: 36415; 71045; 80048; 82040; 83880; 84484; 85025; 85610; 85730; 93005; 99284

== ENCOUNTER 2018-11-13 10:02 | Inpatient (IN) | payer MEDICARE ==
[~2018-11-13] VITALS: Ht 170.2 cm; Wt 83.2 kg
--- NOTE | 2018-11-13 10:10 | NUR ---
EKG IN TRIAGE
--- NOTE | 2018-11-13 10:23 | NUR ---
PT TO RM, WITH C/O PAIN IN CHEST, STATES, "I HAVE BEEN COUGHING FOR THREE DAYS." PT DENIES FEVER, SOB, TRAUMA. PT ON NIBP, CONT PULSE OX, EDI PROGRAMMER ANALYST. PT STATES "MY CHEST IS REALLY FULL." ER PROVIDER IN TO VANDANA PT, DAUGHTER IN LAW AT BEDSIDE
--- NOTE | 2018-11-13 10:32 | NUR ---
PT REPORTS THAT HE HAD A NOSE BLEED LAST NIGHT, HE REPORTED TO HIS DONNELL Gomez LAW WHO IS PRESENT AT BEDSIDE THAT HE FELL LAST NIGHT AND THIS AM, HE DOES NOT REMEMBER HITTING HIS HEAD. CT HEAD ORDERD PER ER MAYA.
[2018-11-13 10:45] LABS: BASOPHILS % (AUTO) 0 % (0-1); EOSINOPHILS # (AUTO) 0.05 x10^3/uL (0-0.4); EOSINOPHILS % (AUTO) 1 % (1-7); LYMPHOCYTES # (AUTO) 0.32 x10^3/uL (1-3.4); LYMPHOCYTES % (AUTO) 6 % (22-44); MD NO; MEAN CORPUSCULAR HEMOGLOBIN 31.9 pg (27.5-34.5); MEAN CORPUSCULAR VOLUME 96.7 fL (81-97); MEAN PLATELET VOLUME 8.9 fL (7.4-10.4); MONOCYTES # (AUTO) 0.54 x10^3/uL (0.2-0.8); MONOCYTES % (AUTO) 10 % (2-9); NEUTROPHILS # (AUTO) 4.31 x10^3/uL (1.8-6.8); NEUTROPHILS % (AUTO) 83 % (42-75); PLATELET COUNT 147 x10^3/uL (130-400); RED BLOOD COUNT 3.67 x10^6/uL (4.38-5.82); RED CELL DISTRIBUTION WIDTH 16.1 % (9.4-14.8)
[2018-11-13 10:52] LABS: INTERNATIONAL NORMALIZED RATIO 2.65 (0.93-1.1); PROTHROMBIN TIME 26.8 Seconds (9.6-11.5)
[2018-11-13 10:59] LABS: ALBUMIN 3.6 g/dL (3.4-5.0); ANION GAP 9 mmol/L (5-15); CALCIUM 8.5 mg/dL (8.5-10.1); CHLORIDE 109 mmol/L (98-107); CREATININE 1.42 mg/dL (0.7-1.3)
[2018-11-13 11:02] LABS: ALKALINE PHOSPHATASE 90 U/L (45-117); BILIRUBIN,TOTAL 1.2 mg/dL (0.2-1.0); TOTAL PROTEIN 6.7 g/dL (6.4-8.2); TROPONIN I < 0.015 ng/mL (0.000-0.045)
--- NOTE | 2018-11-13 11:05 | NUR ---
PT TAKEN TO CT
[2018-11-13 11:06] LABS: ALANINE AMINOTRANSFERASE 23 U/L (12-78)
[2018-11-13] MEDS ORDERED: CEFTRIAXONE PMX 1GM/50ML 50 ML IVPB ONE (12:00)
[2018-11-13] MEDS ORDERED: CEFTRIAXONE PMX 1GM/50ML 50 ML ONE (12:08)
--- NOTE | 2018-11-13 12:29 | NUR ---
REPORT GIVEN TO CHERIE ZEPEDA. AWAITING TRANSPORT.
[2018-11-13] MEDS: OMEPRAZOLE 20 MG CAPSULE.DR PO SCH (13:00)
[2018-11-13] MEDS ORDERED: DILTIAZEM 125 MG in SODIUM CHLORIDE 0.9% 100 ML IV SCH (13:00)
[2018-11-13] MEDS ORDERED: TEMAZEPAM 15 MG CAPSULE PO PRN (13:00)
[2018-11-13] MEDS: GLIMEPIRIDE 1 MG TABLET PO SCH (13:00)
[2018-11-13] MEDS ORDERED: morphine SULFATE 10 MG/ML, 1ML IVPush PRN (13:00)
[2018-11-13] MEDS: FLUTICASONE NASAL SPRAY 16GM NAS SCH (13:00)
[2018-11-13] MEDS ORDERED: hydrALAzine 20 MG/ML, 1ML IVPush PRN (13:00)
[2018-11-13] MEDS: FUROSEMIDE 40 MG TABLET PO SCH (13:00)
[2018-11-13] MEDS: CEFTRIAXONE PMX 1GM/50ML 50 ML IV SCH (13:00)
[2018-11-13] MEDS: ASPIRIN 81 MG TABLET EC PO SCH (13:00)
[2018-11-13] MEDS ORDERED: GABAPENTIN 300 MG CAPSULE PO SCH (13:00)
[2018-11-13] MEDS ORDERED: ONDANSETRON 2MG/ML, 2ML IVPush PRN (13:00)
[2018-11-13 13:09] VITALS: BP 130/73
[2018-11-13 15:51] LABS: MICROSCOPIC NOT IND
[2018-11-13 15:56] LABS: CULTURE INDICATED? NO
[2018-11-13] MEDS: METOPROLOL TARTRATE 25 MG TABLET PO SCH (17:36)
[2018-11-13] MEDS: POTASSIUM CHLORIDE 20 MEQ TAB.ER.PRT PO SCH (17:36)
[2018-11-13 17:41] VITALS: BP 127/65
[2018-11-13] MEDS ORDERED: WARF5TAB PO (17:47)
[2018-11-13] MEDS ORDERED: WARF2.5T PO (17:47)
[2018-11-13] MEDS ORDERED: DILT180C9 PO (17:48)
[2018-11-13] MEDS ORDERED: WARFARIN 2.5 MG TABLET PO-COUM ONE (17:54)
[2018-11-13] MEDS ORDERED: WARFARIN 7.5 MG TABLET PO-COUM SCH (18:00)
[2018-11-13] MEDS ORDERED: WARFARIN 2.5 MG TABLET PO-COUM SCH (18:00)
[2018-11-13 19:40] VITALS: BP 119/58
[2018-11-13] MEDS ORDERED: CARV12.52 PO (19:49)
[2018-11-13] MEDS: DOXYCYCLINE 100MG TABLET PO SCH (20:15)
[2018-11-13] MEDS: ATORVASTATIN 40 MG TABLET PO SCH (20:15)
[2018-11-13] MEDS: ACETAMINOPHEN 325 MG TABLET PO PRN (22:10)
[2018-11-14 01:19] VITALS: BP 132/71
[2018-11-14 05:23] LABS: BASOPHILS # (AUTO) 0.01 x10^3/uL (0-0.1); BASOPHILS % (AUTO) 0 % (0-1); EOSINOPHILS # (AUTO) 0.04 x10^3/uL (0-0.4); EOSINOPHILS % (AUTO) 1 % (1-7); LYMPHOCYTES # (AUTO) 0.74 x10^3/uL (1-3.4); LYMPHOCYTES % (AUTO) 20 % (22-44); MD NO; MEAN CORPUSCULAR HEMOGLOBIN 32.6 pg (27.5-34.5); MEAN CORPUSCULAR HGB CONC 33.3 g/dL (33.2-36.2); MEAN PLATELET VOLUME 9.6 fL (7.4-10.4); MONOCYTES % (AUTO) 19 % (2-9); NEUTROPHILS # (AUTO) 2.18 x10^3/uL (1.8-6.8); NEUTROPHILS % (AUTO) 59 % (42-75); PLATELET COUNT 125 x10^3/uL (130-400); RED BLOOD COUNT 3.56 x10^6/uL (4.38-5.82); RED CELL DISTRIBUTION WIDTH 16.2 % (9.4-14.8)
[2018-11-14 05:24] LABS: INTERNATIONAL NORMALIZED RATIO 2.11 (0.93-1.1); PROTHROMBIN TIME 21.5 Seconds (9.6-11.5)
[2018-11-14 05:32] LABS: ALBUMIN 3.4 g/dL (3.4-5.0); ANION GAP 6 mmol/L (5-15); CALCIUM 8.5 mg/dL (8.5-10.1); CHLORIDE 107 mmol/L (98-107)
[2018-11-14 05:35] LABS: ALANINE AMINOTRANSFERASE 18 U/L (12-78); ALKALINE PHOSPHATASE 85 U/L (45-117); BILIRUBIN,TOTAL 1.1 mg/dL (0.2-1.0); CREATININE 1.27 mg/dL (0.7-1.3); TOTAL PROTEIN 6.4 g/dL (6.4-8.2)
[2018-11-14] MEDS: ACETAMINOPHEN 325 MG TABLET PO PRN ×2 (05:48→17:33)
[2018-11-14] MEDS: METOPROLOL TARTRATE 25 MG TABLET PO SCH ×2 (05:51→17:33)
[2018-11-14] MEDS ORDERED: DILTIAZEM 125 MG in SODIUM CHLORIDE 0.9% 100 ML IV SCH (06:00)
[2018-11-14 06:56] VITALS: BP 112/64
[2018-11-14] MEDS: ASPIRIN 81 MG TABLET EC PO SCH (09:29)
[2018-11-14] MEDS: POTASSIUM CHLORIDE 20 MEQ TAB.ER.PRT PO SCH ×2 (09:30→17:33)
[2018-11-14] MEDS: GABAPENTIN 100 MG CAPSULE PO SCH (09:30)
[2018-11-14] MEDS: DOXYCYCLINE 100MG TABLET PO SCH ×2 (09:31→21:34)
[2018-11-14] MEDS: OMEPRAZOLE 20 MG CAPSULE.DR PO SCH (09:31)
[2018-11-14] MEDS: FUROSEMIDE 40 MG TABLET PO SCH (09:32)
[2018-11-14] MEDS: GLIMEPIRIDE 1 MG TABLET PO SCH (09:32)
[2018-11-14] MEDS: DILTIAZEM 30 MG TABLET PO SCH ×3 (10:07→21:35)
[2018-11-14] MEDS: FLUTICASONE NASAL SPRAY 16GM NAS SCH (10:07)
[2018-11-14 12:13] VITALS: BP 133/69
[2018-11-14] MEDS: CEFTRIAXONE PMX 1GM/50ML 50 ML IV SCH (13:17)
[2018-11-14 17:31] VITALS: BP 143/82
[2018-11-14] MEDS: WARFARIN 5 MG TABLET PO-COUM SCH (17:34)
[2018-11-14 18:34] VITALS: BP 109/63
[2018-11-14] MEDS: ATORVASTATIN 40 MG TABLET PO SCH (21:34)
[2018-11-15 01:07] VITALS: BP 128/71
[2018-11-15] MEDS: DILTIAZEM 30 MG TABLET PO SCH (03:48)
[2018-11-15] MEDS: ACETAMINOPHEN 325 MG TABLET PO PRN (03:48)
[2018-11-15 05:35] VITALS: BP 126/79
[2018-11-15 05:36] LABS: INTERNATIONAL NORMALIZED RATIO 1.69 (0.93-1.1); PROTHROMBIN TIME 17.4 Seconds (9.6-11.5)
[2018-11-15] MEDS: METOPROLOL TARTRATE 25 MG TABLET PO SCH ×2 (05:37→17:21)
[2018-11-15] MEDS: FUROSEMIDE 40 MG TABLET PO SCH (07:48)
[2018-11-15] MEDS: GABAPENTIN 100 MG CAPSULE PO SCH (07:48)
[2018-11-15] MEDS: GLIMEPIRIDE 1 MG TABLET PO SCH (07:48)
[2018-11-15] MEDS: ASPIRIN 81 MG TABLET EC PO SCH (07:48)
[2018-11-15] MEDS: OMEPRAZOLE 20 MG CAPSULE.DR PO SCH (07:48)
[2018-11-15] MEDS: DOXYCYCLINE 100MG TABLET PO SCH (07:48)
[2018-11-15] MEDS: POTASSIUM CHLORIDE 20 MEQ TAB.ER.PRT PO SCH ×2 (07:48→17:21)
[2018-11-15] MEDS: FLUTICASONE NASAL SPRAY 16GM NAS SCH (07:52)
[2018-11-15 07:54] VITALS: BP 131/80
[2018-11-15] MEDS ORDERED: DILTIAZEM CD 180 MG CAP.ER.24H PO SCH (09:00)
[2018-11-15 09:25] LABS: CHLORIDE 105 mmol/L (98-107)
[2018-11-15 09:30] LABS: ALBUMIN 3.4 g/dL (3.4-5.0); ANION GAP 8 mmol/L (5-15); CALCIUM 8.6 mg/dL (8.5-10.1); CREATININE 1.22 mg/dL (0.7-1.3)
[2018-11-15 12:22] VITALS: BP 125/75
[2018-11-15] MEDS: CEFTRIAXONE PMX 1GM/50ML 50 ML IV SCH (12:54)
[2018-11-15] MEDS ORDERED: CEFU250T66 PO (17:11)
[2018-11-15] MEDS ORDERED: DOXY100T PO (17:11)
[2018-11-15] MEDS ORDERED: GUAI-110 PO (17:11)
[2018-11-15 17:20] VITALS: BP 128/80
[2018-11-15] MEDS: WARFARIN 5 MG TABLET PO-COUM SCH (17:22)
== END 2018-11-15 17:56 | disposition home or self-care (01) | DRG 871 ==
LOC: ED 11:49 → 5SO 12:16
PROVIDERS: ADMIT Hospitalist; ATTEND Hospitalist
DX: A41.9 Sepsis, unspecified organism (principal); J15.9 Unspecified bacterial pneumonia; D68.69 Other thrombophilia; I50.32 Chronic diastolic (congestive) heart failure; I13.0 Hypertensive heart and chronic kidney disease with heart failure and stage 1 through stage 4 chronic kidney disease, or unspecified chronic kidney disease; I48.0 Paroxysmal atrial fibrillation; D32.0 Benign neoplasm of cerebral meninges; D64.9 Anemia, unspecified; E11.22 Type 2 diabetes mellitus with diabetic chronic kidney disease; E11.42 Type 2 diabetes mellitus with diabetic polyneuropathy; E11.65 Type 2 diabetes mellitus with hyperglycemia; F12.90 Cannabis use, unspecified, uncomplicated; J32.9 Chronic sinusitis, unspecified; K21.9 Gastro-esophageal reflux disease without esophagitis; N18.3 Chronic kidney disease, stage 3 (moderate); S09.90XA Unspecified injury of head, initial encounter; W18.09XA Striking against other object with subsequent fall, initial encounter; Y93.89 Activity, other specified; Y92.89 Other specified places as the place of occurrence of the external cause; Y99.8 Other external cause status; Z79.01 Long term (current) use of anticoagulants; Z79.899 Other long term (current) drug therapy; Z86.011 Personal history of benign neoplasm of the brain; Z86.73 Personal history of transient ischemic attack (TIA), and cerebral infarction without residual deficits; Z87.891 Personal history of nicotine dependence; Z88.0 Allergy status to penicillin
CPT/HCPCS: 36415; 70450; 71045; 71046; 80053; 80069; 81003; 83605; 83735; 83880; 84100; 84484; 85025; 85610; 87040; 87070; 87077; 87186; 87205; 93005; 96365; G0378; J0696

== ENCOUNTER 2019-03-29 19:07 | Emergency (ER) | payer MEDICARE ==
[~2019-03-29] VITALS: Ht 172.7 cm; Wt 82.4 kg
[~2019-03-29 19:07] MED LIST changes: +CARV12.52 PO; +CEFU250T66 PO; +DILT180C9 PO; +DOXY100T PO; -GLIM1TAB2 PO; +GLIM1TAB3 PO; +GUAI-110 PO; +WARF5TAB PO
--- NOTE | 2019-03-29 19:25 | NUR ---
assessment made. PA at bedside.
--- NOTE | 2019-03-29 19:40 | NUR ---
chemical laboratory assistant at bedside. report to DUANE Barriga.
--- NOTE | 2019-03-29 19:47 | NUR ---
PT AMBULATED TO RESTROOM WITH STEADY GAIT TO PROVIDE URINE SAMPLE.
[2019-03-29 20:00] LABS: BASOPHILS # (AUTO) 0.04 x10^3/uL (0-0.1); BASOPHILS % (AUTO) 0 % (0-1); EOSINOPHILS # (AUTO) 0.27 x10^3/uL (0-0.4); EOSINOPHILS % (AUTO) 3 % (1-7); LYMPHOCYTES # (AUTO) 1.88 x10^3/uL (1-3.4); LYMPHOCYTES % (AUTO) 21 % (22-44); MD NO; MEAN CORPUSCULAR HEMOGLOBIN 32.7 pg (27.5-34.5); MEAN CORPUSCULAR HGB CONC 32.8 g/dL (33.2-36.2); MEAN CORPUSCULAR VOLUME 99.5 fL (81-97); MEAN PLATELET VOLUME 10.2 fL (7.4-10.4); MONOCYTES # (AUTO) 0.81 x10^3/uL (0.2-0.8); MONOCYTES % (AUTO) 9 % (2-9); NEUTROPHILS # (AUTO) 6.14 x10^3/uL (1.8-6.8); NEUTROPHILS % (AUTO) 67 % (42-75); PLATELET COUNT 204 x10^3/uL (130-400); RED BLOOD COUNT 4.38 x10^6/uL (4.38-5.82)
[2019-03-29 20:07] LABS: INTERNATIONAL NORMALIZED RATIO 2.41 (0.93-1.1); PROTHROMBIN TIME 24.5 Seconds (9.6-11.5)
[2019-03-29 20:08] LABS: ALBUMIN 4.2 g/dL (3.4-5.0); ANION GAP 10 mmol/L (5-15); CALCIUM 8.7 mg/dL (8.5-10.1); CHLORIDE 103 mmol/L (98-107)
[2019-03-29 20:10] LABS: MICROSCOPIC NOT IND
[2019-03-29 20:13] LABS: ALANINE AMINOTRANSFERASE 23 U/L (12-78); ALKALINE PHOSPHATASE 122 U/L (45-117); BILIRUBIN,TOTAL 0.9 mg/dL (0.2-1.0); CREATININE 1.46 mg/dL (0.7-1.3); TOTAL PROTEIN 7.6 g/dL (6.4-8.2); TROPONIN I < 0.015 ng/mL (0.000-0.045)
[2019-03-29 20:18] LABS: CULTURE INDICATED? NO
--- NOTE | 2019-03-29 20:20 | NUR ---
ALL RESULTS ARE BACK AT THIS TIME. CHART UP FOR RECHECK.
[2019-03-29 20:39] VITALS: BP 155/57
--- NOTE | 2019-03-29 20:52 | NUR ---
Patient/Caregiver given discharge instructions and they have confirmed that they understand the instructions. Patient ambulatory with steady gait.
== END 2019-03-29 20:54 | disposition home or self-care (01) ==
LOC: ED 19:23
DX: R42 Dizziness and giddiness (principal); I13.0 Hypertensive heart and chronic kidney disease with heart failure and stage 1 through stage 4 chronic kidney disease, or unspecified chronic kidney disease; N18.9 Chronic kidney disease, unspecified; I50.9 Heart failure, unspecified; R51 Headache; E11.22 Type 2 diabetes mellitus with diabetic chronic kidney disease; I48.91 Unspecified atrial fibrillation; Z86.73 Personal history of transient ischemic attack (TIA), and cerebral infarction without residual deficits
CPT/HCPCS: 36415; 71045; 80053; 81003; 84484; 85025; 85610; 93005; 99284

== ENCOUNTER 2019-06-14 11:29 | Emergency (ER) | payer MEDICARE ==
[~2019-06-14] VITALS: Ht 170.2 cm; Wt 82.4 kg
[2019-06-14] MEDS ORDERED: SODIUM CHLORIDE FLUSH 10ML SYR IVF ONE (12:00)
[2019-06-14 12:23] LABS: BASOPHILS # (AUTO) 0.03 x10^3/uL (0-0.1); BASOPHILS % (AUTO) 0 % (0-1); EOSINOPHILS # (AUTO) 0.14 x10^3/uL (0-0.4); EOSINOPHILS % (AUTO) 2 % (1-7); LYMPHOCYTES # (AUTO) 1.31 x10^3/uL (1-3.4); LYMPHOCYTES % (AUTO) 16 % (22-44); MD NO; MEAN CORPUSCULAR HGB CONC 33.6 g/dL (33.2-36.2); MEAN CORPUSCULAR VOLUME 95.2 fL (81-97); MEAN PLATELET VOLUME 10.9 fL (7.4-10.4); MONOCYTES # (AUTO) 0.61 x10^3/uL (0.2-0.8); MONOCYTES % (AUTO) 7 % (2-9); NEUTROPHILS # (AUTO) 6.33 x10^3/uL (1.8-6.8); NEUTROPHILS % (AUTO) 75 % (42-75); PLATELET COUNT 184 x10^3/uL (130-400); RED BLOOD COUNT 4.67 x10^6/uL (4.38-5.82)
--- NOTE | 2019-06-14 12:28 | NUR ---
PT STATES, "WHEN I JUST BEND OVER TO TIE MY SHOES I GET WINDED" PT STATES HE GOT A SHARP/PRESSURE IN HIS CHEST YESTERDAY AND IT WENT AWAY, HE DECIDED TO COME IN TODAY TO "FIGURE OUT WHATS WRONG WITH ME" PT TO BP, CARD MONITOR, CONT PULSE OX
[2019-06-14 12:31] LABS: ALANINE AMINOTRANSFERASE 26 U/L (12-78); ALBUMIN 3.9 g/dL (3.4-5.0); ANION GAP 6 mmol/L (5-15); CALCIUM 9.1 mg/dL (8.5-10.1); CHLORIDE 106 mmol/L (98-107); CREATININE 1.62 mg/dL (0.7-1.3)
[2019-06-14 12:35] LABS: ALKALINE PHOSPHATASE 110 U/L (45-117); TOTAL PROTEIN 7.4 g/dL (6.4-8.2); TROPONIN I < 0.015 ng/mL (0.000-0.045)
[2019-06-14 12:41] LABS: INTERNATIONAL NORMALIZED RATIO 2.05 (0.93-1.1); PROTHROMBIN TIME 21.9 Seconds (9.6-11.5)
--- NOTE | 2019-06-14 12:47 | NUR ---
BREAK RN: PT UPRIGHT ON GURNEY AWAKE & COMFORTABLE, RESPONDS APPROP TO STAFF, NAD, NO NEEDS AT THIS TIME, CALL LIGHT WITHIN REACH. UA SAMPLE SENT TO LAB.
[2019-06-14 12:50] LABS: BILIRUBIN,TOTAL 0.9 mg/dL (0.2-1.0)
[2019-06-14 13:01] LABS: MICROSCOPIC NOT IND
[2019-06-14 13:17] LABS: CULTURE INDICATED? NO
[2019-06-14 14:05] VITALS: BP 142/90
--- NOTE | 2019-06-14 14:08 | NUR ---
PT RESTING ON GURNEY, VSS, ALL NEEDS MET. NAD NOTED
--- NOTE | 2019-06-14 14:38 | NUR ---
ERMD IN TO UPDATE PT ON POC, PT TO DC HOME
--- NOTE | 2019-06-14 14:51 | NUR ---
Patient given discharge instructions and they have confirmed that they understand the instructions. Patient ambulatory with steady gait.
== END 2019-06-14 14:54 | disposition home or self-care (01) ==
LOC: ED 13:42
DX: I48.20 Chronic atrial fibrillation, unspecified (principal); I12.9 Hypertensive chronic kidney disease with stage 1 through stage 4 chronic kidney disease, or unspecified chronic kidney disease; E11.22 Type 2 diabetes mellitus with diabetic chronic kidney disease; N18.3 Chronic kidney disease, stage 3 (moderate); I50.9 Heart failure, unspecified; N28.9 Disorder of kidney and ureter, unspecified; Z87.891 Personal history of nicotine dependence; Z86.73 Personal history of transient ischemic attack (TIA), and cerebral infarction without residual deficits
CPT/HCPCS: 36415; 70450; 71045; 80053; 81003; 83735; 83880; 84484; 85025; 85610; 93005; 99284

== ENCOUNTER 2019-09-15 04:39 | Inpatient (IN) | payer MEDICARE ==
[~2019-09-15] VITALS: Ht 172.7 cm; Wt 77.3 kg
[~2019-09-15 04:39] MED LIST changes: +DILT180C32 PO; -DILT180C9 PO; -GLIM1TAB3 PO; +GLIM1TAB7 PO
--- NOTE | 2019-09-15 05:15 | NUR ---
PT HERE FOR DARK STOOLS AND INCREASED FATIGUE. ACCORDING TO FAMILY PTS COUMADIN DOSAGE WAS CHANGED AND SHE THINKS HE HAS BEEN TAKING TOO MUCH. BLOOD WORK WAS DONE YESTERDAY AND THEY HAVE NO RECIEVED THE RESULTS. PA AT BEDSIDE
[2019-09-15] MEDS ORDERED: DILTIAZEM 125 MG in SODIUM CHLORIDE 0.9% 100 ML IV SCH ×2 (05:24→20:30)
[2019-09-15] MEDS ORDERED: ONDANSETRON 2MG/ML, 2ML IVPush ONE (05:30)
[2019-09-15] MEDS ORDERED: DILTIAZEM 5 MG/ML, 5ML IV ONE (05:30)
[2019-09-15 05:48] LABS: BASOPHILS # (AUTO) 0.06 x10^3/uL (0-0.1); BASOPHILS % (AUTO) 1 % (0-1); EOSINOPHILS # (AUTO) 0.12 x10^3/uL (0-0.4); EOSINOPHILS % (AUTO) 1 % (1-7); LYMPHOCYTES # (AUTO) 1.45 x10^3/uL (1-3.4); LYMPHOCYTES % (AUTO) 18 % (22-44); MD NO; MEAN CORPUSCULAR HEMOGLOBIN 32.5 pg (27.5-34.5); MEAN CORPUSCULAR HGB CONC 33.4 g/dL (33.2-36.2); MEAN CORPUSCULAR VOLUME 97.3 fL (81-97); MEAN PLATELET VOLUME 9.6 fL (7.4-10.4); MONOCYTES # (AUTO) 0.64 x10^3/uL (0.2-0.8); MONOCYTES % (AUTO) 8 % (2-9); NEUTROPHILS # (AUTO) 6.04 x10^3/uL (1.8-6.8); NEUTROPHILS % (AUTO) 73 % (42-75); PLATELET COUNT 160 x10^3/uL (130-400); RED CELL DISTRIBUTION WIDTH 14.8 % (9.4-14.8)
[2019-09-15 06:03] LABS: ALANINE AMINOTRANSFERASE 22 U/L (12-78); ALBUMIN 3.4 g/dL (3.4-5.0); ANION GAP 9 mmol/L (5-15); CALCIUM 8.5 mg/dL (8.5-10.1); CHLORIDE 109 mmol/L (98-107); CREATININE 1.35 mg/dL (0.7-1.3)
[2019-09-15 06:07] LABS: ALKALINE PHOSPHATASE 104 U/L (45-117); BILIRUBIN,TOTAL 0.6 mg/dL (0.2-1.0); T4 (THYROXINE) 6.8 mcg/dL (4.5-12.1); TOTAL PROTEIN 6.3 g/dL (6.4-8.2); TROPONIN I < 0.015 ng/mL (0.000-0.045)
[2019-09-15] MEDS ORDERED: ONDANSETRON 2MG/ML, 2ML ONE (06:08)
--- NOTE | 2019-09-15 06:11 | NUR ---
PT AMBULATED TO BATHROOM WITH ASSISTANCE. PT MEDICATED FOR NAUSEA. XRAY AT BEDSIDE
[2019-09-15 06:18] LABS: INTERNATIONAL NORMALIZED RATIO > 11.50 (0.93-1.1); PROTHROMBIN TIME > 148.7 Seconds (9.6-11.5)
[2019-09-15] MEDS ORDERED: PANTOPRAZOLE 40 MG IV ONE (06:22)
[2019-09-15] MEDS ORDERED: PHYTONADIONE 10 MG/ML, 1ML ONE (06:30)
[2019-09-15] MEDS ORDERED: PHYTONADIONE 10 MG/ML, 1ML IM ONE (06:30)
[2019-09-15] MEDS ORDERED: PANTOPRAZOLE 40 MG IV IVPush ONE (06:30)
--- NOTE | 2019-09-15 06:38 | NUR ---
PT GIVEN VITAMIN K AND PROTONIX. CARDIAnnyM BEING HELD AT THIS TIME PER DR YUEN.
--- NOTE | 2019-09-15 06:58 | NUR ---
RECEIVED REPORT FROM DUANE LION. PT SITTING IN BED, RESPIRATIONS EVEN AND UNLABORED, NO SIGNS OF DISTRESS, DAUGHTER, FABIENNE AT BEDSIDE.
--- NOTE | 2019-09-15 07:16 | NUR ---
FABIENNE, DAUGHTER, OKAY TO UPDATE, .
[2019-09-15 07:35] VITALS: BP 102/62
--- NOTE | 2019-09-15 07:53 | NUR ---
PT SITTING IN BED, CONVERSING WITH NURSE DURING FIRST 15 MINUTES OF BLOOD TRANSFUSION, NO SIGNS OF DISTRESS.
[2019-09-15 07:57] VITALS: BP 116/75
[2019-09-15] MEDS ORDERED: ONDANSETRON ODT 4 MG PO PRN (08:00)
[2019-09-15] MEDS ORDERED: ONDANSETRON 2MG/ML, 2ML IVPush PRN (08:00)
--- NOTE | 2019-09-15 08:25 | NUR ---
REPORT GIVEN TO DUANE REAL.
[2019-09-15 08:28] VITALS: BP 124/58
[2019-09-15 08:49] VITALS: BP 109/62
[2019-09-15] MEDS: FLUTICASONE NASAL SPRAY 16GM NAS SCH (09:00)
[2019-09-15] MEDS: LACTOBACILLUS CHEW TABLET PO SCH ×3 (09:28→20:38)
[2019-09-15] MEDS: GLIMEPIRIDE 1 MG TABLET PO SCH (09:28)
[2019-09-15] MEDS: OMEPRAZOLE 20 MG CAPSULE.DR PO SCH (09:28)
[2019-09-15] MEDS: GABAPENTIN 100 MG CAPSULE PO SCH (09:29)
[2019-09-15] MEDS: POTASSIUM CHLORIDE 20 MEQ TAB.ER.PRT PO SCH ×2 (09:29→17:29)
[2019-09-15] MEDS: GUAIFENESIN ER 600 MG TABLET PO SCH ×2 (09:29→20:38)
[2019-09-15] MEDS: FUROSEMIDE 20 MG TABLET PO SCH (09:29)
[2019-09-15] MEDS: PSEUDOEPHEDRINE 30 MG TABLET PO SCH ×3 (10:44→20:38)
[2019-09-15] MEDS: ACETAMINOPHEN 325 MG TABLET PO PRN ×2 (10:44→17:29)
[2019-09-15] MEDS: INSULIN LISPRO 100 UNITS/ML, PEN SQ-INSULIN SCH ×3 (11:00→20:45)
[2019-09-15] MEDS ORDERED: CARVEDILOL 6.25 MG TABLET ONE (12:29)
[2019-09-15] MEDS: CARVEDILOL 12.5 MG TABLET PO SCH (12:31)
[2019-09-15 13:55] VITALS: BP 109/65
[2019-09-15 18:48] VITALS: BP 104/62
[2019-09-15] MEDS: ATORVASTATIN 40 MG TABLET PO SCH (20:38)
[2019-09-16 01:33] VITALS: BP 115/63
[2019-09-16] MEDS: ACETAMINOPHEN 325 MG TABLET PO PRN ×2 (02:54→19:15)
[2019-09-16 05:41] LABS: ANION GAP 7 mmol/L (5-15); CALCIUM 8.9 mg/dL (8.5-10.1); CHLORIDE 110 mmol/L (98-107)
[2019-09-16 05:47] LABS: CREATININE 1.16 mg/dL (0.7-1.3)
[2019-09-16] MEDS: PSEUDOEPHEDRINE 30 MG TABLET PO SCH ×4 (05:47→21:09)
[2019-09-16] MEDS: CARVEDILOL 12.5 MG TABLET PO SCH (05:47)
[2019-09-16 05:49] LABS: INTERNATIONAL NORMALIZED RATIO 4.41 (0.93-1.1); PROTHROMBIN TIME 47.4 Seconds (9.6-11.5)
[2019-09-16 05:59] LABS: BASOPHILS # (AUTO) 0.02 x10^3/uL (0-0.1); BASOPHILS % (AUTO) 0 % (0-1); EOSINOPHILS # (AUTO) 0.15 x10^3/uL (0-0.4); EOSINOPHILS % (AUTO) 3 % (1-7); LYMPHOCYTES # (AUTO) 1.09 x10^3/uL (1-3.4); LYMPHOCYTES % (AUTO) 17 % (22-44); MD NO; MEAN CORPUSCULAR HEMOGLOBIN 32.9 pg (27.5-34.5); MEAN CORPUSCULAR HGB CONC 33.9 g/dL (33.2-36.2); MEAN CORPUSCULAR VOLUME 96.9 fL (81-97); MEAN PLATELET VOLUME 10.1 fL (7.4-10.4); MONOCYTES # (AUTO) 0.46 x10^3/uL (0.2-0.8); MONOCYTES % (AUTO) 7 % (2-9); NEUTROPHILS # (AUTO) 4.53 x10^3/uL (1.8-6.8); NEUTROPHILS % (AUTO) 73 % (42-75); PLATELET COUNT 135 x10^3/uL (130-400); RED CELL DISTRIBUTION WIDTH 15.2 % (9.4-14.8)
[2019-09-16 06:56] VITALS: BP 119/63
[2019-09-16] MEDS: LACTOBACILLUS CHEW TABLET PO SCH ×3 (08:25→21:09)
[2019-09-16] MEDS: GLIMEPIRIDE 1 MG TABLET PO SCH (08:25)
[2019-09-16] MEDS: INSULIN LISPRO 100 UNITS/ML, PEN SQ-INSULIN SCH ×4 (08:25→20:46)
[2019-09-16] MEDS: FUROSEMIDE 20 MG TABLET PO SCH (08:26)
[2019-09-16] MEDS: POTASSIUM CHLORIDE 20 MEQ TAB.ER.PRT PO SCH ×2 (08:26→16:27)
[2019-09-16] MEDS: GUAIFENESIN ER 600 MG TABLET PO SCH ×2 (08:26→21:09)
[2019-09-16] MEDS: GABAPENTIN 100 MG CAPSULE PO SCH (08:26)
[2019-09-16] MEDS: OMEPRAZOLE 20 MG CAPSULE.DR PO SCH (08:26)
[2019-09-16] MEDS: FLUTICASONE NASAL SPRAY 16GM NAS SCH (09:56)
[2019-09-16] MEDS ORDERED: METOPROLOL TARTRATE 50 MG TAB PO SCH (12:30)
[2019-09-16] MEDS ORDERED: DILTIAZEM 120 MG CAP.ER.12H PO SCH (12:30)
[2019-09-16 12:50] VITALS: BP 113/70
[2019-09-16] MEDS: DILTIAZEM 90 MG CAP.ER.12H PO SCH ×2 (12:52→21:09)
[2019-09-16 14:40] VITALS: BP 126/69
[2019-09-16 21:07] VITALS: BP 123/73
[2019-09-16] MEDS: METOPROLOL TARTRATE 50 MG TAB PO SCH (21:10)
[2019-09-16] MEDS: ATORVASTATIN 40 MG TABLET PO SCH (21:10)
[2019-09-17] MEDS: DIPHENHYDRAMINE 25 MG CAPSULE PO PRN (00:13)
[2019-09-17] MEDS: GABAPENTIN 100 MG CAPSULE PO SCH ×3 (00:13→20:46)
[2019-09-17 02:18] VITALS: BP 133/65
[2019-09-17 05:44] LABS: BASOPHILS # (AUTO) 0.03 x10^3/uL (0-0.1); BASOPHILS % (AUTO) 0 % (0-1); EOSINOPHILS # (AUTO) 0.12 x10^3/uL (0-0.4); EOSINOPHILS % (AUTO) 2 % (1-7); LYMPHOCYTES # (AUTO) 1.16 x10^3/uL (1-3.4); LYMPHOCYTES % (AUTO) 17 % (22-44); MD NO; MEAN CORPUSCULAR HEMOGLOBIN 33.4 pg (27.5-34.5); MEAN CORPUSCULAR HGB CONC 34.1 g/dL (33.2-36.2); MEAN CORPUSCULAR VOLUME 97.9 fL (81-97); MEAN PLATELET VOLUME 10.1 fL (7.4-10.4); MONOCYTES % (AUTO) 7 % (2-9); NEUTROPHILS # (AUTO) 5.04 x10^3/uL (1.8-6.8); NEUTROPHILS % (AUTO) 74 % (42-75); PLATELET COUNT 162 x10^3/uL (130-400); RED BLOOD COUNT 2.81 x10^6/uL (4.38-5.82); RED CELL DISTRIBUTION WIDTH 15.1 % (9.4-14.8)
[2019-09-17 05:54] LABS: CHLORIDE 107 mmol/L (98-107)
[2019-09-17 06:03] LABS: ANION GAP 6 mmol/L (5-15); CALCIUM 9.1 mg/dL (8.5-10.1); CREATININE 1.16 mg/dL (0.7-1.3)
[2019-09-17] MEDS: PSEUDOEPHEDRINE 30 MG TABLET PO SCH ×4 (06:05→20:46)
[2019-09-17 08:06] VITALS: BP 135/71
[2019-09-17] MEDS: POTASSIUM CHLORIDE 20 MEQ TAB.ER.PRT PO SCH ×2 (08:11→16:31)
[2019-09-17] MEDS: DILTIAZEM 90 MG CAP.ER.12H PO SCH ×2 (08:11→20:46)
[2019-09-17] MEDS: LACTOBACILLUS CHEW TABLET PO SCH ×3 (08:11→20:47)
[2019-09-17] MEDS: OMEPRAZOLE 20 MG CAPSULE.DR PO SCH (08:12)
[2019-09-17] MEDS: GLIMEPIRIDE 1 MG TABLET PO SCH (08:12)
[2019-09-17] MEDS: GUAIFENESIN ER 600 MG TABLET PO SCH ×2 (08:12→20:47)
[2019-09-17] MEDS: FUROSEMIDE 20 MG TABLET PO SCH (08:12)
[2019-09-17] MEDS: FLUTICASONE NASAL SPRAY 16GM NAS SCH (08:13)
[2019-09-17] MEDS: ACETAMINOPHEN 325 MG TABLET PO PRN ×2 (08:13→18:15)
[2019-09-17] MEDS: METOPROLOL TARTRATE 50 MG TAB PO SCH ×2 (08:13→20:48)
[2019-09-17] MEDS: INSULIN LISPRO 100 UNITS/ML, PEN SQ-INSULIN SCH ×4 (08:42→20:34)
[2019-09-17 11:29] LABS: INTERNATIONAL NORMALIZED RATIO 1.82 (0.93-1.1); PROTHROMBIN TIME 19.4 Seconds (9.6-11.5)
[2019-09-17 13:32] VITALS: BP 125/71
[2019-09-17] MEDS ORDERED: WARFARIN 5 MG TABLET PO-COUM ONE (18:00)
[2019-09-17 18:52] VITALS: BP 108/66
[2019-09-17] MEDS: ATORVASTATIN 40 MG TABLET PO SCH (20:47)
[2019-09-18] MEDS: ACETAMINOPHEN 325 MG TABLET PO PRN ×3 (00:31→20:56)
[2019-09-18 00:33] VITALS: BP 118/68
[2019-09-18 05:28] LABS: INTERNATIONAL NORMALIZED RATIO 1.39 (0.93-1.1); PROTHROMBIN TIME 14.8 Seconds (9.6-11.5)
[2019-09-18 05:29] LABS: BASOPHILS # (AUTO) 0.06 x10^3/uL (0-0.1); BASOPHILS % (AUTO) 1 % (0-1); EOSINOPHILS # (AUTO) 0.19 x10^3/uL (0-0.4); EOSINOPHILS % (AUTO) 2 % (1-7); LYMPHOCYTES # (AUTO) 1.41 x10^3/uL (1-3.4); LYMPHOCYTES % (AUTO) 16 % (22-44); MD NO; MEAN CORPUSCULAR HEMOGLOBIN 32.8 pg (27.5-34.5); MEAN CORPUSCULAR HGB CONC 33.7 g/dL (33.2-36.2); MEAN CORPUSCULAR VOLUME 97.3 fL (81-97); MEAN PLATELET VOLUME 10.1 fL (7.4-10.4); MONOCYTES # (AUTO) 0.62 x10^3/uL (0.2-0.8); MONOCYTES % (AUTO) 7 % (2-9); NEUTROPHILS # (AUTO) 6.75 x10^3/uL (1.8-6.8); NEUTROPHILS % (AUTO) 75 % (42-75); PLATELET COUNT 195 x10^3/uL (130-400); RED BLOOD COUNT 3.21 x10^6/uL (4.38-5.82); RED CELL DISTRIBUTION WIDTH 14.9 % (9.4-14.8)
[2019-09-18 05:30] LABS: ANION GAP 6 mmol/L (5-15); CALCIUM 9.3 mg/dL (8.5-10.1); CHLORIDE 106 mmol/L (98-107); CREATININE 1.16 mg/dL (0.7-1.3)
[2019-09-18] MEDS: PSEUDOEPHEDRINE 30 MG TABLET PO SCH ×4 (06:00→20:57)
[2019-09-18 07:51] VITALS: BP 135/73
[2019-09-18] MEDS: FLUTICASONE NASAL SPRAY 16GM NAS SCH (07:56)
[2019-09-18] MEDS: DILTIAZEM 90 MG CAP.ER.12H PO SCH ×2 (07:56→20:57)
[2019-09-18] MEDS: GUAIFENESIN ER 600 MG TABLET PO SCH ×2 (07:57→20:58)
[2019-09-18] MEDS: OMEPRAZOLE 20 MG CAPSULE.DR PO SCH (07:57)
[2019-09-18] MEDS: METOPROLOL TARTRATE 50 MG TAB PO SCH ×2 (07:57→20:57)
[2019-09-18] MEDS: FUROSEMIDE 20 MG TABLET PO SCH (07:57)
[2019-09-18] MEDS: GABAPENTIN 100 MG CAPSULE PO SCH ×2 (07:57→20:57)
[2019-09-18] MEDS: GLIMEPIRIDE 1 MG TABLET PO SCH (07:57)
[2019-09-18] MEDS: LACTOBACILLUS CHEW TABLET PO SCH ×3 (07:57→20:56)
[2019-09-18] MEDS: POTASSIUM CHLORIDE 20 MEQ TAB.ER.PRT PO SCH ×2 (07:58→18:11)
[2019-09-18] MEDS: INSULIN LISPRO 100 UNITS/ML, PEN SQ-INSULIN SCH ×4 (08:14→21:11)
[2019-09-18 13:23] VITALS: BP 118/68
[2019-09-18] MEDS: WARFARIN 5 MG TABLET PO-COUM SCH (15:45)
[2019-09-18 19:55] VITALS: BP 143/77
[2019-09-18] MEDS: PANTOPRAZOLE 40MG TABLET PO SCH (20:57)
[2019-09-18] MEDS: ATORVASTATIN 40 MG TABLET PO SCH (20:57)
[2019-09-19] MEDS: DIPHENHYDRAMINE 25 MG CAPSULE PO PRN ×2 (00:26→20:30)
[2019-09-19 01:46] VITALS: BP 148/72
[2019-09-19] MEDS: ACETAMINOPHEN 325 MG TABLET PO PRN ×3 (02:55→20:23)
[2019-09-19 06:21] LABS: BASOPHILS # (AUTO) 0.02 x10^3/uL (0-0.1); BASOPHILS % (AUTO) 0 % (0-1); EOSINOPHILS % (AUTO) 3 % (1-7); LYMPHOCYTES # (AUTO) 1.03 x10^3/uL (1-3.4); LYMPHOCYTES % (AUTO) 14 % (22-44); MD NO; MEAN CORPUSCULAR HEMOGLOBIN 32.9 pg (27.5-34.5); MEAN CORPUSCULAR HGB CONC 33.7 g/dL (33.2-36.2); MEAN CORPUSCULAR VOLUME 97.6 fL (81-97); MEAN PLATELET VOLUME 9.5 fL (7.4-10.4); MONOCYTES # (AUTO) 0.65 x10^3/uL (0.2-0.8); MONOCYTES % (AUTO) 9 % (2-9); NEUTROPHILS % (AUTO) 74 % (42-75); PLATELET COUNT 173 x10^3/uL (130-400); RED BLOOD COUNT 2.99 x10^6/uL (4.38-5.82); RED CELL DISTRIBUTION WIDTH 14.8 % (9.4-14.8)
[2019-09-19 06:29] LABS: ANION GAP 7 mmol/L (5-15); CALCIUM 8.9 mg/dL (8.5-10.1); CHLORIDE 108 mmol/L (98-107); CREATININE 1.11 mg/dL (0.7-1.3)
[2019-09-19 07:30] VITALS: BP 126/74
[2019-09-19] MEDS: GLIMEPIRIDE 1 MG TABLET PO SCH (08:46)
[2019-09-19] MEDS: INSULIN LISPRO 100 UNITS/ML, PEN SQ-INSULIN SCH ×4 (08:46→20:30)
[2019-09-19] MEDS: DILTIAZEM 90 MG CAP.ER.12H PO SCH ×2 (08:46→20:23)
[2019-09-19] MEDS: POTASSIUM CHLORIDE 20 MEQ TAB.ER.PRT PO SCH ×2 (08:46→16:43)
[2019-09-19] MEDS: PSEUDOEPHEDRINE 30 MG TABLET PO SCH ×4 (08:46→20:23)
[2019-09-19] MEDS: FLUTICASONE NASAL SPRAY 16GM NAS SCH (08:46)
[2019-09-19] MEDS: FUROSEMIDE 20 MG TABLET PO SCH (08:47)
[2019-09-19] MEDS: PANTOPRAZOLE 40MG TABLET PO SCH ×2 (08:47→20:30)
[2019-09-19] MEDS: METOPROLOL TARTRATE 50 MG TAB PO SCH ×2 (08:47→20:23)
[2019-09-19] MEDS: GABAPENTIN 100 MG CAPSULE PO SCH ×2 (08:47→20:22)
[2019-09-19] MEDS: GUAIFENESIN ER 600 MG TABLET PO SCH ×2 (08:47→20:24)
[2019-09-19] MEDS: LACTOBACILLUS CHEW TABLET PO SCH ×3 (08:47→20:24)
[2019-09-19 09:58] LABS: INTERNATIONAL NORMALIZED RATIO 1.32 (0.93-1.1)
[2019-09-19 13:38] VITALS: BP 117/70
[2019-09-19] MEDS: WARFARIN 5 MG TABLET PO-COUM SCH (14:00)
[2019-09-19] MEDS: LIDODERM 5% PATCH TD SCH (16:43)
[2019-09-19 19:39] VITALS: BP 109/69
[2019-09-19] MEDS: ATORVASTATIN 40 MG TABLET PO SCH (20:23)
[2019-09-20 01:56] VITALS: BP 124/70
[2019-09-20] MEDS: ACETAMINOPHEN 325 MG TABLET PO PRN ×2 (02:02→21:05)
[2019-09-20] MEDS: PSEUDOEPHEDRINE 30 MG TABLET PO SCH ×4 (04:51→21:04)
[2019-09-20 06:56] LABS: ANION GAP 8 mmol/L (5-15); CALCIUM 9.4 mg/dL (8.5-10.1); CHLORIDE 106 mmol/L (98-107)
[2019-09-20 06:57] LABS: CREATININE 1.27 mg/dL (0.7-1.3)
[2019-09-20 07:00] LABS: BASOPHILS # (AUTO) 0.05 x10^3/uL (0-0.1); BASOPHILS % (AUTO) 1 % (0-1); EOSINOPHILS # (AUTO) 0.23 x10^3/uL (0-0.4); EOSINOPHILS % (AUTO) 3 % (1-7); LYMPHOCYTES # (AUTO) 1.33 x10^3/uL (1-3.4); LYMPHOCYTES % (AUTO) 16 % (22-44); MD NO; MEAN CORPUSCULAR HGB CONC 33.3 g/dL (33.2-36.2); MEAN CORPUSCULAR VOLUME 98.9 fL (81-97); MEAN PLATELET VOLUME 9.9 fL (7.4-10.4); MONOCYTES # (AUTO) 0.66 x10^3/uL (0.2-0.8); MONOCYTES % (AUTO) 8 % (2-9); NEUTROPHILS # (AUTO) 5.95 x10^3/uL (1.8-6.8); NEUTROPHILS % (AUTO) 72 % (42-75); PLATELET COUNT 212 x10^3/uL (130-400); RED BLOOD COUNT 3.25 x10^6/uL (4.38-5.82); RED CELL DISTRIBUTION WIDTH 15.3 % (9.4-14.8)
[2019-09-20] MEDS: FLUTICASONE NASAL SPRAY 16GM NAS SCH (08:09)
[2019-09-20] MEDS: GLIMEPIRIDE 1 MG TABLET PO SCH (08:10)
[2019-09-20] MEDS: LACTOBACILLUS CHEW TABLET PO SCH ×3 (08:10→21:05)
[2019-09-20] MEDS: INSULIN LISPRO 100 UNITS/ML, PEN SQ-INSULIN SCH ×4 (08:10→21:06)
[2019-09-20] MEDS: GUAIFENESIN ER 600 MG TABLET PO SCH ×2 (08:11→21:04)
[2019-09-20] MEDS: DILTIAZEM 90 MG CAP.ER.12H PO SCH ×2 (08:11→21:04)
[2019-09-20] MEDS: GABAPENTIN 100 MG CAPSULE PO SCH ×2 (08:11→21:04)
[2019-09-20] MEDS: PANTOPRAZOLE 40MG TABLET PO SCH ×2 (08:12→21:04)
[2019-09-20] MEDS: METOPROLOL TARTRATE 50 MG TAB PO SCH ×2 (08:12→21:05)
[2019-09-20 08:13] VITALS: BP 106/70
[2019-09-20] MEDS: FUROSEMIDE 20 MG TABLET PO SCH (08:13)
[2019-09-20] MEDS: POTASSIUM CHLORIDE 20 MEQ TAB.ER.PRT PO SCH ×2 (08:13→17:26)
[2019-09-20 09:39] VITALS: BP 110/71
[2019-09-20 10:37] LABS: INTERNATIONAL NORMALIZED RATIO 1.36 (0.93-1.1); PROTHROMBIN TIME 14.5 Seconds (9.6-11.5)
[2019-09-20 13:00] VITALS: BP 121/68
[2019-09-20] MEDS: LIDODERM 5% PATCH TD SCH (16:53)
[2019-09-20] MEDS ORDERED: WARFARIN 5 MG TABLET PO-COUM ONE (18:00)
[2019-09-20 19:38] VITALS: BP 127/75
[2019-09-20] MEDS: ATORVASTATIN 40 MG TABLET PO SCH (21:05)
[2019-09-21 01:30] VITALS: BP 118/69
[2019-09-21 05:49] LABS: INTERNATIONAL NORMALIZED RATIO 1.81 (0.93-1.1); PROTHROMBIN TIME 19.3 Seconds (9.6-11.5)
[2019-09-21 05:54] LABS: CALCIUM 9.2 mg/dL (8.5-10.1); CHLORIDE 106 mmol/L (98-107)
[2019-09-21] MEDS: PSEUDOEPHEDRINE 30 MG TABLET PO SCH ×4 (05:54→21:14)
[2019-09-21] MEDS: ACETAMINOPHEN 325 MG TABLET PO PRN ×2 (05:54→17:32)
[2019-09-21 05:57] LABS: BASOPHILS # (AUTO) 0.03 x10^3/uL (0-0.1); BASOPHILS % (AUTO) 0 % (0-1); EOSINOPHILS # (AUTO) 0.24 x10^3/uL (0-0.4); EOSINOPHILS % (AUTO) 4 % (1-7); LYMPHOCYTES # (AUTO) 1.15 x10^3/uL (1-3.4); LYMPHOCYTES % (AUTO) 18 % (22-44); MD NO; MEAN CORPUSCULAR HGB CONC 33.6 g/dL (33.2-36.2); MEAN CORPUSCULAR VOLUME 98.2 fL (81-97); MEAN PLATELET VOLUME 9.7 fL (7.4-10.4); MONOCYTES # (AUTO) 0.58 x10^3/uL (0.2-0.8); MONOCYTES % (AUTO) 9 % (2-9); NEUTROPHILS # (AUTO) 4.48 x10^3/uL (1.8-6.8); NEUTROPHILS % (AUTO) 69 % (42-75); PLATELET COUNT 200 x10^3/uL (130-400); RED BLOOD COUNT 3.14 x10^6/uL (4.38-5.82); RED CELL DISTRIBUTION WIDTH 15.8 % (9.4-14.8)
[2019-09-21 05:58] LABS: ANION GAP 6 mmol/L (5-15); CREATININE 1.26 mg/dL (0.7-1.3)
[2019-09-21 07:40] VITALS: BP 126/73
[2019-09-21] MEDS: FLUTICASONE NASAL SPRAY 16GM NAS SCH (08:32)
[2019-09-21] MEDS: INSULIN LISPRO 100 UNITS/ML, PEN SQ-INSULIN SCH ×4 (08:33→21:16)
[2019-09-21] MEDS: GLIMEPIRIDE 1 MG TABLET PO SCH (08:34)
[2019-09-21] MEDS: DILTIAZEM 90 MG CAP.ER.12H PO SCH ×2 (08:34→21:15)
[2019-09-21] MEDS: GUAIFENESIN ER 600 MG TABLET PO SCH ×2 (08:34→21:15)
[2019-09-21] MEDS: PANTOPRAZOLE 40MG TABLET PO SCH ×2 (08:34→21:15)
[2019-09-21] MEDS: METOPROLOL TARTRATE 50 MG TAB PO SCH ×2 (08:34→21:15)
[2019-09-21] MEDS: FUROSEMIDE 20 MG TABLET PO SCH (08:34)
[2019-09-21] MEDS: GABAPENTIN 100 MG CAPSULE PO SCH ×2 (08:34→21:15)
[2019-09-21] MEDS: POTASSIUM CHLORIDE 20 MEQ TAB.ER.PRT PO SCH ×2 (08:34→17:30)
[2019-09-21] MEDS: LACTOBACILLUS CHEW TABLET PO SCH ×3 (08:35→21:14)
[2019-09-21 13:58] VITALS: BP 113/57
[2019-09-21] MEDS: LIDODERM 5% PATCH TD SCH (17:28)
[2019-09-21] MEDS ORDERED: WARFARIN 2 MG TABLET PO-COUM ONE (18:00)
[2019-09-21] MEDS ORDERED: WARFARIN 1 MG TABLET PO-COUM ONE (18:00)
[2019-09-21 20:51] VITALS: BP 124/65
[2019-09-21] MEDS: ATORVASTATIN 40 MG TABLET PO SCH (21:15)
[2019-09-22 03:29] VITALS: BP 125/69
[2019-09-22] MEDS: ACETAMINOPHEN 325 MG TABLET PO PRN (05:12)
[2019-09-22] MEDS: PSEUDOEPHEDRINE 30 MG TABLET PO SCH ×2 (05:12→11:51)
[2019-09-22 05:27] LABS: INTERNATIONAL NORMALIZED RATIO 2.31 (0.93-1.1); PROTHROMBIN TIME 24.7 Seconds (9.6-11.5)
[2019-09-22 05:28] LABS: ANION GAP 5 mmol/L (5-15); CALCIUM 8.6 mg/dL (8.5-10.1); CHLORIDE 107 mmol/L (98-107); CREATININE 1.28 mg/dL (0.7-1.3)
[2019-09-22 05:31] LABS: BASOPHILS # (AUTO) 0.03 x10^3/uL (0-0.1); BASOPHILS % (AUTO) 1 % (0-1); EOSINOPHILS # (AUTO) 0.21 x10^3/uL (0-0.4); EOSINOPHILS % (AUTO) 3 % (1-7); LYMPHOCYTES # (AUTO) 1.13 x10^3/uL (1-3.4); LYMPHOCYTES % (AUTO) 18 % (22-44); MD NO; MEAN CORPUSCULAR HEMOGLOBIN 33.7 pg (27.5-34.5); MEAN CORPUSCULAR HGB CONC 34.1 g/dL (33.2-36.2); MEAN CORPUSCULAR VOLUME 98.8 fL (81-97); MEAN PLATELET VOLUME 9.7 fL (7.4-10.4); MONOCYTES % (AUTO) 8 % (2-9); NEUTROPHILS % (AUTO) 70 % (42-75); PLATELET COUNT 199 x10^3/uL (130-400); RED BLOOD COUNT 3.01 x10^6/uL (4.38-5.82); RED CELL DISTRIBUTION WIDTH 15.4 % (9.4-14.8)
[2019-09-22 08:45] VITALS: BP 134/74
[2019-09-22] MEDS: POTASSIUM CHLORIDE 20 MEQ TAB.ER.PRT PO SCH (09:02)
[2019-09-22] MEDS: GLIMEPIRIDE 1 MG TABLET PO SCH (09:02)
[2019-09-22] MEDS: INSULIN LISPRO 100 UNITS/ML, PEN SQ-INSULIN SCH ×2 (09:02→11:52)
[2019-09-22] MEDS: PANTOPRAZOLE 40MG TABLET PO SCH (09:02)
[2019-09-22] MEDS: LACTOBACILLUS CHEW TABLET PO SCH (09:02)
[2019-09-22] MEDS: FLUTICASONE NASAL SPRAY 16GM NAS SCH (09:02)
[2019-09-22] MEDS: GUAIFENESIN ER 600 MG TABLET PO SCH (09:02)
[2019-09-22] MEDS: DILTIAZEM 90 MG CAP.ER.12H PO SCH (09:03)
[2019-09-22] MEDS: METOPROLOL TARTRATE 50 MG TAB PO SCH (09:03)
[2019-09-22] MEDS: FUROSEMIDE 20 MG TABLET PO SCH (09:03)
[2019-09-22] MEDS: GABAPENTIN 100 MG CAPSULE PO SCH (09:03)
[2019-09-22] MEDS ORDERED: ACID1TAB7 PO (11:09)
[2019-09-22] MEDS ORDERED: PANT40TA5 PO (11:09)
[2019-09-22] MEDS ORDERED: WARFARIN 2 MG TABLET PO-COUM ONE (18:00)
== END 2019-09-22 13:23 | disposition home or self-care (01) | DRG 377 ==
LOC: ED 06:46 → EDIP 06:59 → 5SO 08:35
PROVIDERS: ADMIT Internal Medicine; ATTEND Hospitalist
DX: K29.01 Acute gastritis with bleeding (principal); N17.0 Acute kidney failure with tubular necrosis; D68.59 Other primary thrombophilia; I50.32 Chronic diastolic (congestive) heart failure; I13.0 Hypertensive heart and chronic kidney disease with heart failure and stage 1 through stage 4 chronic kidney disease, or unspecified chronic kidney disease; K21.0 Gastro-esophageal reflux disease with esophagitis; I48.91 Unspecified atrial fibrillation; N18.3 Chronic kidney disease, stage 3 (moderate); E11.22 Type 2 diabetes mellitus with diabetic chronic kidney disease; E11.65 Type 2 diabetes mellitus with hyperglycemia; G51.0 Bell's palsy; T45.515A Adverse effect of anticoagulants, initial encounter; D64.9 Anemia, unspecified; Z86.73 Personal history of transient ischemic attack (TIA), and cerebral infarction without residual deficits; Z79.01 Long term (current) use of anticoagulants; Y92.89 Other specified places as the place of occurrence of the external cause; Z86.011 Personal history of benign neoplasm of the brain; Z88.0 Allergy status to penicillin; Z79.899 Other long term (current) drug therapy; Z79.82 Long term (current) use of aspirin
CPT/HCPCS: 36415; 71045; 80048; 80053; 82962; 83036; 83735; 83880; 84436; 84443; 84484; 85018; 85025; 85610; 86850; 86900; 93005; 96372; 96374; 96375; 99285; G0378; J2405; J3430; C9113; J1815; P9017; Q0163

== ENCOUNTER 2020-01-14 13:20 | Emergency (ER) | payer MEDICARE ==
[~2020-01-14] VITALS: Ht 175.3 cm; Wt 83.0 kg
[~2020-01-14 13:20] MED LIST changes: +ACID1TAB7 PO; +PANT40TA5 PO; -WARF2.5T PO; +WARF2.5T2 PO; -WARF5TAB PO; +WARF5TAB2 PO
[2020-01-14] MEDS ORDERED: SODIUM CHLORIDE FLUSH 10ML SYR IVF ONE (14:30)
[2020-01-14 14:53] LABS: BASOPHILS # (AUTO) 0.02 x10^3/uL (0-0.1); BASOPHILS % (AUTO) 0 % (0-1); EOSINOPHILS # (AUTO) 0.14 x10^3/uL (0-0.4); EOSINOPHILS % (AUTO) 2 % (1-7); LYMPHOCYTES % (AUTO) 13 % (22-44); MD NO; MEAN CORPUSCULAR HEMOGLOBIN 31.7 pg (27.5-34.5); MEAN CORPUSCULAR HGB CONC 33.2 g/dL (33.2-36.2); MEAN CORPUSCULAR VOLUME 95.4 fL (81-97); MEAN PLATELET VOLUME 10.2 fL (7.4-10.4); MONOCYTES # (AUTO) 0.58 x10^3/uL (0.2-0.8); MONOCYTES % (AUTO) 7 % (2-9); NEUTROPHILS # (AUTO) 6.25 x10^3/uL (1.8-6.8); NEUTROPHILS % (AUTO) 78 % (42-75); PLATELET COUNT 166 x10^3/uL (130-400); RED BLOOD COUNT 4.08 x10^6/uL (4.38-5.82); RED CELL DISTRIBUTION WIDTH 15.7 % (9.4-14.8)
[2020-01-14 15:04] LABS: ALBUMIN 3.5 g/dL (3.4-5.0); ANION GAP 6 mmol/L (5-15); CALCIUM 8.6 mg/dL (8.5-10.1); CHLORIDE 110 mmol/L (98-107); CREATININE 1.14 mg/dL (0.7-1.3)
[2020-01-14 15:08] LABS: TROPONIN I < 0.015 ng/mL (0.000-0.045)
[2020-01-14 16:05] VITALS: BP 161/81
--- NOTE | 2020-01-14 16:10 | NUR ---
TASK RN: PT AMBULATED WITH PULSE OX. SPO2 VARIABLE 85-95% ON RA. PT WITH MILDLY INCREASED WOB. DENIES ACUTE CHANGE IN BREATHLESSNESS AND REPORTS "THIS IS NORMAL". FRIEND AT BEDSIDE REPORTS SIGNIFICANT ACTIVITY INTOLERANCE. ERP AWARE.
== END 2020-01-14 16:48 | disposition home or self-care (01) ==
LOC: ED 14:52
DX: I11.0 Hypertensive heart disease with heart failure (principal); I50.22 Chronic systolic (congestive) heart failure; R07.9 Chest pain, unspecified; I48.91 Unspecified atrial fibrillation; E11.9 Type 2 diabetes mellitus without complications; Z86.73 Personal history of transient ischemic attack (TIA), and cerebral infarction without residual deficits
CPT/HCPCS: 36415; 71045; 80048; 82040; 83880; 84484; 85025; 93005; 99285

== ENCOUNTER → 2020-03-01 | Outpatient (CLI) | payer MEDICARE ==
[~2020-03-01] MED LIST changes: -ENAL20TA PO; +ENAL20TA9 PO; -PANT40TA5 PO; +PANT40TA6 PO
== END | disposition home or self-care (01) ==
LOC: CFH 07:39
PROVIDERS: ATTEND Internal Medicine Cardiovascular Disease
DX: I08.8 Other rheumatic multiple valve diseases (principal); I10 Essential (primary) hypertension; I48.91 Unspecified atrial fibrillation
CPT/HCPCS: 93306

== ENCOUNTER 2020-07-26 12:43 | Emergency (ER) | payer MEDICARE ==
[~2020-07-26 12:43] MED LIST changes: +AMLO-211 PO; -AMLO10TA8 PO; +DIGO0.12 PO; +DILT-86 PO; -DILT180C32 PO; +GEMF-31 PO; -GEMF600T8 PO
--- NOTE | 2020-07-26 12:47 | NUR ---
PT AMBULATED TO BR WITHOUT DIFFICULTY, INSTRUCTED ON CLEAN CATCH URINE SAMPLE.
[2020-07-26 13:28] VITALS: BP 147/75
[2020-07-26] MEDS ORDERED: SODIUM CHLORIDE FLUSH 10ML SYR IVF ONE (13:30)
[2020-07-26 13:36] LABS: MICROSCOPIC INDICATED
[2020-07-26 13:40] LABS: BASOPHILS % (AUTO) 1 % (0-1); EOSINOPHILS % (AUTO) 2 % (1-7); LYMPHOCYTES % (AUTO) 15 % (22-44); MEAN CORPUSCULAR HGB CONC 33.6 g/dL (33.2-36.2); MEAN PLATELET VOLUME 9.1 fL (7.4-10.4); MONOCYTES % (AUTO) 7 % (2-9); NEUTROPHILS % (AUTO) 75 % (42-75); PLATELET COUNT 184 x10^3/uL (130-400); RED CELL DISTRIBUTION WIDTH 15.6 % (9.4-14.8)
[2020-07-26 13:45] LABS: MD NO
[2020-07-26 13:52] LABS: ALANINE AMINOTRANSFERASE 22 U/L (12-78); ALBUMIN 3.7 g/dL (3.4-5.0); ANION GAP 7 mmol/L (5-15); CHLORIDE 106 mmol/L (98-107); CREATININE 1.38 mg/dL (0.7-1.3); INTERNATIONAL NORMALIZED RATIO 1.22 (0.93-1.1)
--- NOTE | 2020-07-26 13:57 | NUR ---
pt in bed with no signs or symptoms of acute distress noted respirations even and unlabored. pt denies pain or discomfort at this time. pt on case monitor, satting well on room air. call light in hand, urinal at bedside
[2020-07-26 14:08] LABS: ALKALINE PHOSPHATASE 141 U/L (45-117); BILIRUBIN,TOTAL 0.9 mg/dL (0.2-1.0); TOTAL PROTEIN 7.3 g/dL (6.4-8.2)
== END 2020-07-26 14:59 | disposition home or self-care (01) ==
LOC: ED 13:17
DX: E11.22 Type 2 diabetes mellitus with diabetic chronic kidney disease (principal); I13.0 Hypertensive heart and chronic kidney disease with heart failure and stage 1 through stage 4 chronic kidney disease, or unspecified chronic kidney disease; N18.9 Chronic kidney disease, unspecified; N30.00 Acute cystitis without hematuria; I48.20 Chronic atrial fibrillation, unspecified; I45.10 Unspecified right bundle-branch block; Z88.0 Allergy status to penicillin; Z86.73 Personal history of transient ischemic attack (TIA), and cerebral infarction without residual deficits
CPT/HCPCS: 36415; 80053; 80162; 81001; 85025; 85610; 87077; 87086; 87186; 93005; 99284